=== PATIENT | female | born 1965 | race Two or more races ===

== ENCOUNTER 2017-09-17 10:34 | Observation (INO) | payer OTHER ==
--- NOTE | 2017-09-17 11:25 | PDOC ---
History of Present Illness - General History Source: Patient Exam Limitations: No Limitations - History of Present Illness Initial Comments: 09/17/17 15:57 The patient is a 52 year old female with past medical history of IDDM and HTN presents to the emergency department with abdominal pain, nausea and vomiting. The patient presents with a 1 week history of non bilious or non-bloody emesis for the past 1 week. The patient reports shes been unable to tolerate food for the past 3 days secondary to nausea and vomiting. The patient states an acute onset of constant abdominal pain localized to the flank region, with 10/10 in severity, that is aggravated by drinking or eating. The patient states she hasn t had a bowel movement in the past 2 days, but is able to move xena. Denies fever, chills, chest pain cough or a headache. Denies dysuria, hematuria , frequency or urgency to urinate. Denies diarrhea or constipation. Denies chest pain, shortness of breath or palpitations. Denies hematemesis or hemoptysis. Allergies: Iodinated Contrast Media - IV dye and aspirin Social history: None reported Surgical history: Gastric bypass/ Hernia repair (August 01, 2017 @ [place]), C- section and liposuction (August 2014), Post Op care: Dr. Natalia AWAN. Surgeon: Dr. Guillermo Newman PCP: Dr. Lily Henry <Anne Cook - Last Filed: 09/17/17 15:57> - General History Source: Patient Exam Limitations: No Limitations - History of Present Illness Travel History: No <Robby Gaines - Last Filed: 09/17/17 20:16> - General Chief Complaint: Pain, Acute Stated Complaint: PAIN Time Seen by Provider: 09/17/17 11:04 Past History <Anne Cook - Last Filed: 09/17/17 15:57> - Past Medical History Anemia: No Asthma: No Cancer: No CVA: No COPD: No Diabetes: Yes HTN: Yes - Surgical History Abdominal Surgery: Yes Appendectomy: No Cholecystectomy: No GI Surgery: Yes (sleeve) - Immunization History Td Vaccination: Yes Immunization Up to Date: Yes - Suicide/Smoking/Psychosocial Hx Smoking Status: No Smoking History: Never smoked Years of Tobacco Use: 0 Have you smoked in the past 12 months: No Number of Cigarettes Smoked Daily: 0 Cigars Per Day: 0 Information on smoking cessation initiated: No Hx Alcohol Use: No Drug/Substance Use Hx: No Substance Use Type: None Hx Substance Use Treatment: No <Robby Gaines - Last Filed: 09/17/17 20:16> - Past Medical History Allergies/Adverse Reactions: Allergies Allergy/AdvReac Type Severity Reaction Status Date / Time aspirin Allergy Intermediate Hives Verified 09/17/17 10:37 Iodinated Contrast- Oral and Allergy Mild Rash Verified 09/17/17 10:37 IV Dye Home Medications: Ambulatory Orders Pantoprazole Sodium [Protonix -] 20 mg PO BID 09/17/17 metFORMIN HCL [Metformin HCl] 500 mg PO DAILY 09/17/17 Review of Systems - Review of Systems Able to Perform ROS?: Yes Comments:: 09/17/17 15:58 CONSTITUTIONAL: No reported: Fever, Chills, Diaphoresis, Generalized Weakness, Malaise, Loss of Appetite HEENT: No reported: Rhinorrhea, Nasal Congestion, Throat Pain, Throat Swelling, Difficulty Swallowing, Mouth Swelling, Ear Pain, Eye Pain, Visual Changes CARDIOVASCULAR: No reported: Chest Pain, Syncope, Palpitations, Irregular Heart Rate, Lightheadedness, Peripheral Edema RESPIRATORY: No reported: Cough, Shortness of Breath, SOB with Exertion, Orthopnea, Wheezing , Stridor, Hemoptysis GASTROINTESTINAL: (+) Nausea, vomiting and abdominal pain. No reported: Abdominal Distension, Diarrhea, Constipation, Melena, Hematochezia GENITOURINARY: (+) Flank pain. No reported: Dysuria, Frequency, Urgency, Hesitancy, Flank Pain, Genital Pain MUSCULOSKELETAL: No reported: Myalgia, Arthralgia, Joint Swelling, Back pain, Neck Pain SKIN: No reported: Rash, Itching, Pallor HEMEATOLOGIC/IMMUNOLOGIC: No reported: Easy Bleeding, Easy Bruising, Lymphadenopathy, Frequent infections ENDOCRINE: No reported: Unexplained Weight Gain, Unexplained Weight Loss, Heat Intolerance , Cold Intolerance NEUROLOGIC: No reported: Headache, Focal Weakness, Paresthesias, Vertigo, Lightheadedness, Unsteady Gait, Seizure, Mental Status Changes, Incontinence PSYCHIATRIC: No reported: Anxiety, Depression <Anne Cook - Last Filed: 09/17/17 15:57> *Physical Exam - Vital Signs Last Vital Signs Temp Pulse Resp BP Pulse Ox 98.0 F 97 H 17 180/79 99 09/17/17 10:37 09/17/17 10:37 09/17/17 10:37 09/17/17 10:37 09/17/17 10:37 - Physical Exam Comments: 09/17/17 15:58 GENERAL: The patient is awake, alert, and fully oriented, Nontoxic - but apperas uncomfortable. HEAD: Normocephalic, atraumatic. EYES: extraocular movements intact, sclera anicteric, conjunctiva clear. ENT: Normal voice, Moist mucous membranes. NECK: Normal range of motion, supple LUNGS: Breath sounds equal, clear to auscultation bilaterally. No wheezes, no rhonchi, no rales. HEART: Regular rate and rhythm, normal S1 and S2 without murmur, rub or gallop. ABDOMEN: Soft, nontender, No guarding, no rebound. No CVA tenderness, several well healed wounds on abdomen EXTREMITIES: Normal range of motion, no edema. NEUROLOGICAL: No facial assymetry, Normal speech, moving all 4 extremities spontaneously and symmetrically PSYCH: Normal mood, normal affect. SKIN: Warm, Dry, normal turgor, <Anne Cook - Last Filed: 09/17/17 15:57> - Vital Signs Last Vital Signs Temp Pulse Resp BP Pulse Ox 98.0 F 97 H 17 180/79 99 09/17/17 10:37 09/17/17 10:37 09/17/17 10:37 09/17/17 10:37 09/17/17 10:37 <Robby Gaines - Last Filed: 09/17/17 20:16> ED Treatment Course - LABORATORY CBC & Chemistry Diagram: 09/17/17 11:53 09/17/17 11:53 - ADDITIONAL ORDERS Additional order review: Laboratory Results 09/17/17 09/17/17 09/17/17 13:14 12:38 11:53 PT with INR INR Sodium Potassium Chloride Carbon Dioxide Anion Gap BUN Creatinine Creat Clearance w eGFR Random Glucose Lactic Acid 1.4 Calcium Total Bilirubin AST ALT Alkaline Phosphatase Total Protein Albumin Lipase Serum , Qual Negative Urine Color Kimi Urine Appearance Cloudy Urine pH 5.0 Ur Specific [place] 1.029 Urine Protein 2+ H Urine Glucose (UA) Negative Urine Ketones 1+ H Urine Blood 1+ H Urine Nitrite Positive Urine Bilirubin 2.0 Urine Urobilinogen 4.0 e.u/dl H Ur Leukocyte Esterase Negative Urine WBC (Auto) 9 Urine RBC (Auto) 14 Ur Epithelial Cells Many Urine Bacteria Many Hyaline Casts 2 Urine Mucus Many Blood Type Antibody Screen 09/17/17 09/17/17 09/17/17 11:53 11:53 11:53 PT with INR 13.70 H INR 1.21 H Sodium 140 Potassium 4.5 Chloride 108 H Carbon Dioxide 24 Anion Gap 8 BUN 9 Creatinine 0.8 Creat Clearance w eGFR > 60 Random Glucose 173 H Lactic Acid Calcium 9.1 Total Bilirubin 0.9 AST 37 ALT 24 Alkaline Phosphatase 101 Total Protein 7.8 Albumin 4.0 Lipase 89 Serum , Qual Urine Color Urine Appearance Urine pH Ur Specific [place] Urine Protein Urine Glucose (UA) Urine Ketones Urine Blood Urine Nitrite Urine Bilirubin Urine Urobilinogen Ur Leukocyte Esterase Urine WBC (Auto) Urine RBC (Auto) Ur Epithelial Cells Urine Bacteria Hyaline Casts Urine Mucus Blood Type A POSITIVE Antibody Screen Negative 09/17/17 11:53 RBC 3.86 MCV 93.1 MCHC 34.8 RDW 13.0 MPV 7.2 L D Neutrophils % 61.8 D Lymphocytes % 31.5 D Monocytes % 4.7 Eosinophils % 1.3 Basophils % 0.7 - Medications Given in the ED: ED Medications Discontinued Medications Generic Name Dose Route Start Last Admin Trade Name Romieq PRN Reason Stop Dose Admin Sodium Chloride 1,000 mls @ 1,000 mls/hr 09/17/17 11:29 09/17/17 11:54 Normal Saline - IV 09/17/17 12:28 1,000 mls/hr .Q1H ONE Administration Morphine Sulfate 2 mg 09/17/17 11:29 09/17/17 11:55 Morphine Injection - IVPUSH 09/17/17 11:30 2 mg ONCE ONE Administration Morphine Sulfate 2 mg 09/17/17 14:14 09/17/17 14:24 Morphine Injection - IVPUSH 09/17/17 14:15 2 mg ONCE ONE Administration Ondansetron HCl 4 mg 09/17/17 11:29 09/17/17 11:54 Zofran Injection IVPB 09/17/17 11:30 4 mg ONCE ONE Administration <Anne Cook - Last Filed: 09/17/17 15:57> - LABORATORY CBC & Chemistry Diagram: 09/17/17 11:53 09/17/17 11:53 <Robby Gaines - Last Filed: 09/17/17 20:16> Medical Decision Making - Medical Decision Making 09/17/17 11:24 52y F presents with n/v x 1 week, associated with abdominal pain that worsens in the LUQ radiating to the epigastrium. Unable to tolerate food for 3 days and no bm for 2 days. no fever/chills, diarrhea, hematmeisis. +flatuence. on exam the pts abdomen is soft nontender, but she appears uncomfortable Gastric bypass/hernia repair on 08/01 at [place]. ddx includes obstruction, kidney stones, andriy ck cbc, cmp, lactic acid will obtain ekg to screen for acs will give zofran, fluids, morphine for symptomatic relief A portion of this note was documented by scribe services under my direction. I have reviewed the details of the note, within reason, and agree with the documentation with the following case summary and management plan written by me 09/17/17 15:33 pts labs reviewed - unremarkable pts UA cw UTI wlil treat with pyroidium and levaquin CT abd unremarkble for acute process, no signs of hydro on CT, or inflammatory changes such as pyelo no signs of hydro on bedside US +moderate stool retention will give stool softener 09/17/17 17:52 pt still in significant pain writhing around. notes her pain seems to be coming form her back and raditint o arm ?thoracic/cervical hernia - will obtain CT to further evuate her pain 09/17/17 19:06 will add on xray chest, if no cervical/trahocic cause, consider ?dissection?? although pt does not hve many risk factors and pain is fairly atypical will sign patient pt out to dr. hawkins to fu and reassess the patient * will admit to obsevation for now still awaiting trop from lab had followed up noted they will run it 09/17/17 19:51 cxr appears normal with signs of widened mediastinum or abnormal contours 09/17/17 20:14 The pts daugther arrived - states she chronically has abd/chest/back pain for many years, and was on percocet at home but wasnt really helping. Pt does have a visit from 5 years ago for similar complaint. Unclear about chronicity of her symptoms. but as pt is still in pain will admit for further management case dw dr. Kerr - agree with obsevation in med surg under dr. cruz service <Robby Gaines - Last Filed: 09/17/17 20:16> *DC/Admit/Observation/Transfer - Attestations Scribe Attestion: 09/17/17 15:58 Documentation prepared by Anne Cook, acting as medical nurse for Robby Gaines MD. <Anne Cook - Last Filed: 09/17/17 15:57> - Discharge Dispostion Decision to Admit order: Yes <Robby Gaines - Last Filed: 09/17/17 20:16> Diagnosis at time of Disposition: Intractable pain Urinary tract infection Qualifiers: Urinary tract infection type: acute cystitis Hematuria presence: with hematuria Qualified Code(s): N30.01 - Acute cystitis with hematuria - Discharge Dispostion Condition at time of disposition: Stable - Referrals Referrals: Lily Henry MD [Primary Care Provider] - - Patient Instructions
[2017-09-17] MEDS ORDERED: SODIUM CHLORIDE 1,000 ML IV ONE (11:29)
[2017-09-17] MEDS ORDERED: ONDANSETRON 4 MG/2 ML VIAL IVPB ONE (11:29)
[2017-09-17] MEDS ORDERED: morphine CARPU-JECT 2 MG/1 ML DISP.SYRIN IVPUSH ONE ×2 (11:29→14:14)
[2017-09-17] MEDS ORDERED: MORPHINE SULFATE 2 MG/ML VIAL ONE ×3 (11:32→23:55)
[2017-09-17] MEDS ORDERED: ONDANSETRON 4 MG/2 ML VIAL ONE (11:33)
[2017-09-17 11:57] LABS: BASO % 0.7 % (0-2.0); EOS % 1.3 % (0-4.5); HEMATOCRIT 35.9 % (32.4-45.2); HEMOGLOBIN 12.5 GM/dL (10.7-15.3); LYMPH % 31.5 % (8-40); MCH 32.4 pg (25.7-33.7); MCHC 34.8 g/dl (32.0-36.0); MEAN CELL VOLUME 93.1 fl (80-96); MEAN PLT VOLUME 7.2 fl (7.5-11.1); MONO % 4.7 % (3.8-10.2); NEUT % 61.8 % (42.8-82.8); PLATELET COUNT 339 K/MM3 (134-434); RBC 3.86 M/mm3 (3.60-5.2); WHITE BLOOD COUNT 5.5 K/mm3 (4.0-10.0)
[2017-09-17 12:15] LABS: INR 1.21 (0.82-1.09); PROTHROMBIN TIME (PATIENT) 13.7 SEC (9.7-13.0)
[2017-09-17 12:26] LABS: ANION GAP 8 (8-16); BILIRUBIN,TOTAL 0.9 mg/dL (0.2-1.0); BLOOD UREA NITROGEN 9 mg/dL (7-18); CALCIUM 9.1 mg/dL (8.5-10.1); CHLORIDE 108 mmol/L (98-107); CO2 24 mmol/L (21-32); CREATININE 0.8 mg/dL (0.55-1.02); GLUCOSE,RANDOM 173 mg/dL (74-106); LIPASE 89 U/L (73-393); SGPT/ALT 24 U/L (12-78); SODIUM 140 mmol/L (136-145); TOT PROT 7.8 g/dl (6.4-8.2)
[2017-09-17 12:27] LABS: ALK PHOS 101 U/L (45-117)
[2017-09-17 12:29] LABS: POTASSIUM 4.5 mmol/L (3.5-5.1); SGOT/AST 37 U/L (15-37)
[2017-09-17 12:54] LABS: URINE APPEARANCE CLOUDY; URINE COLOR AMBER; URINE GLUCOSE (UA) NEGATIVE (NEGATIVE); URINE KETONE 1+ (NEGATIVE); URINE LEUK ESTERASE NEGATIVE (NEGATIVE); URINE NITRITE POSITIVE (NEGATIVE); URINE UROBILINOGEN 4.0 E.U/dl mg/dL (0.2-1.0)
[2017-09-17 12:55] LABS: URINE PROTEIN 2+ (NEGATIVE)
[2017-09-17 13:03] LABS: EPI CELLS MANY /HPF (FEW); URINE BACTERIA MANY /hpf (NONE SEEN); URINE HYALINE CAST 2 /lpf; URINE MUCUS MANY
--- NOTE | 2017-09-17 14:33 | EKG ---
Test Reason : Blood Pressure : / mmHG Vent. Rate : 082 BPM Atrial Rate : 082 BPM P-R Int : 148 ms QRS Dur : 078 ms QT Int : 418 ms P-R-T Axes : 049 008 029 degrees QTc Int : 488 ms NORMAL SINUS RHYTHM CANNOT RULE OUT ANTERIOR INFARCT , AGE UNDETERMINED ABNORMAL ECG WHEN COMPARED WITH ECG OF 30-MAR-2013 08:51, NONSPECIFIC T WAVE ABNORMALITY NOW EVIDENT IN ANTERIOR LEADS NONSPECIFIC T WAVE ABNORMALITY NO LONGER EVIDENT IN LATERAL LEADS Confirmed by Rikki Jacome ([id number]) on 09/17/2017 2:33:02 PM Referred By: Confirmed By:Rikki Jacome
[2017-09-17] MEDS ORDERED: PHENAZOPYRIDINE HCL 100 MG TABLET (FP) PO ONE (15:34)
[2017-09-17] MEDS ORDERED: MAGNESIUM CITRATE 300 ML BOTTLE PO ONE (15:37)
[2017-09-17] MEDS ORDERED: KETOROLAC TROMETHAMINE 30 MG/1 ML VIAL IVPUSH ONE (16:16)
[2017-09-17] MEDS ORDERED: KETOROLAC TROMETHAMINE 30 MG/1 ML VIAL ONE (16:26)
[2017-09-17] MEDS ORDERED: MAGNESIUM CITRATE 300 ML BOTTLE ONE (16:26)
[2017-09-17] MEDS ORDERED: PHENAZOPYRIDINE HCL 100 MG TABLET (FP) ONE (16:26)
[2017-09-17] MEDS ORDERED: morphine CARPU-JECT 4 MG/1 ML DISP.SYRIN IVPUSH ONE ×2 (17:43→17:52)
[2017-09-17] MEDS ORDERED: morphine SULFATE 4 MG/ML VIAL ONE (17:52)
[2017-09-17] MEDS ORDERED: ACETAMINOPHEN 1000 MG/100 ML VIAL (NON FORMULARY) IVPB ONE (19:48)
[2017-09-17] MEDS ORDERED: ACETAMINOPHEN INJECTION 100 ML IVPB ONE (20:08)
--- NOTE | 2017-09-17 21:01 | PN ---
Teaching Attending Note Name of Resident: Florentino Ryan ATTENDING PHYSICIAN STATEMENT I saw and evaluated the patient. I reviewed the resident's note and discussed the case with the resident. I agree with the resident's findings and plan as documented. SUBJECTIVE: Patient is a 52 year old woman with past medical history of insulin-treated DM and HTN presents to the ER with abdominal pain, nausea and vomiting. The patient presents with a 1 week history of non bilious or non-bloody emesis. She s been unable to tolerate food for the past 3 days due to nausea and vomiting. She had an acute onset of constant abdominal pain localized to the flank region , with 10/10 in severity, that is aggravated by drinking or eating. The patient states she hasnt had a bowel movement in the past 2 days, but is able to pass gas. She denies fever, chills, chest pain, dysuria, hematuria, frequency or urgency. OBJECTIVE: Vital Signs Period Temp Pulse Resp BP Sys/Sierra Pulse Ox Last 24 Hr 97.7 F-98.0 F 91-97 16-17 142-180/79-85 97-99 HEENT: No Jaundice, eye redness or discharge, PERRLA, EOMI. Normocephalic, atraumatic. External ears are normal and hearing is grossly intact. No nasal discharge. Neck: Supple, nontender. No palpable adenopathy or thyromegaly. No JVD Chest: Good effort. Clear to auscultation and percussion. Heart: Regular. No S3, rub or murmur Abdomen: Not distended, soft, nontender and no HSM. No rebound or guarding. Normoactive bowel sounds. Ext: Peripheral pulses intact. No leg edema. Skin: Warm and dry. No petechiae, rash or ecchymosis. Neuro: Alert. Oriented x3. CN 2-12 grossly intact. Sensation grossly intact in all four extremities and DTR are symmetric. Home Medications Medication Instructions Recorded Pantoprazole Sodium [Protonix -] 20 mg PO BID 09/17/17 metFORMIN HCL [Metformin HCl] 500 mg PO DAILY 09/17/17 Abnormal Lab Results 09/17/17 09/17/17 09/17/17 11:53 11:53 11:53 MPV 7.2 L D PT with INR 13.70 H INR 1.21 H Chloride 108 H Random Glucose 173 H Urine Protein Urine Ketones Urine Blood Urine Urobilinogen 09/17/17 12:38 MPV PT with INR INR Chloride Random Glucose Urine Protein 2+ H Urine Ketones 1+ H Urine Blood 1+ H Urine Urobilinogen 4.0 e.u/dl H Current Medications Generic Name Dose Route Start Last Admin Trade Name Freq PRN Reason Stop Dose Admin Heparin Sodium (Porcine) 5,000 unit 09/18/17 06:00 Heparin - SQ TID BAUDILIO Sodium Chloride 1,000 mls @ 100 mls/hr 09/17/17 23:15 09/17/17 23:39 Normal Saline - IV 100 mls/hr ASDIR BAUDILIO Administration Insulin Aspart 1 vial 09/18/17 07:00 Novolog Vial Sliding Scale - SQ ACHS [facility] Protocol Metoclopramide HCl 10 mg 09/17/17 23:12 09/18/17 00:01 Reglan Injection - IVPUSH 10 mg Q6H PRN Administration NAUSEA AND/OR VOMITING Morphine Sulfate 2 mg 09/17/17 23:16 09/18/17 00:01 Morphine Sulfate IVPUSH 2 mg Q4H PRN Administration PAIN LEVEL 6-10 Pantoprazole Sodium 40 mg 09/17/17 23:13 09/17/17 23:30 Protonix Iv IVPUSH 40 mg DAILY BAUDILIO Administration Polyethylene Glycol 17 gm 09/18/17 10:00 Miralax (For Daily Use) - PO DAILY [facility] ASSESSMENT AND PLAN: 1. Diabetic gastropathy - Will treat with Reglan, zofran, IV fluid NS at 100 ml/ hour and IV protonix 40 mg daily. Patient also has constipation which will be treated with Miralax. Will consult GI. 2. Renal colic -Though the stones seen on CT were nonobstructing, she may still have renal colic. Will continue IV fluids and morphine 2 mg IV q 4 hours. 3. Uncontrolled Hypertension - Improve in the ER without treatment. Will give Lisinopril 10 mg po BID and stress low salt diet. 4. Uncontrolled DM - Will hold Metformin, check HbA1c and place on insulin sliding scale. 5. DVT prophylaxis - Heparin 5000u sq tid. 6. Advance directives - Full code
[2017-09-17] MEDS ORDERED: morphine CARPU-JECT 2 MG/1 ML DISP.SYRIN IVPUSH PRN (23:08)
[2017-09-17] MEDS ORDERED: METOCLOPRAMIDE HCL INJECTION 10 MG/2 ML VIAL IVPUSH PRN (23:12)
[2017-09-17] MEDS ORDERED: PANTOPRAZOLE SODIUM 40 MG VIAL ONE (23:20)
[2017-09-17] MEDS: PANTOPRAZOLE SODIUM 40 MG VIAL IVPUSH SCH (23:30)
[2017-09-17] MEDS: SODIUM CHLORIDE 1,000 ML IV SCH (23:39)
[2017-09-17] MEDS ORDERED: METOCLOPRAMIDE HCL INJECTION 10 MG/2 ML VIAL ONE (23:55)
[2017-09-18] MEDS: morphine SULFATE 4 MG/ML VIAL IVPUSH PRN ×3 (00:01→11:20)
[2017-09-18] MEDS ORDERED: ONDANSETRON 4 MG/2 ML VIAL IVPB PRN (01:45)
--- NOTE | 2017-09-18 01:57 | HP ---
CHIEF COMPLAINT: Flank pain PCP: Dr. Chambers HISTORY OF PRESENT ILLNESS: The patient is a 52 yo f w/ PMH DM who comes into the ED c/o a 1 week history of left sided flank pain as well as nausea and vomiting. The patient describes a dull pain centered along her left flank which radiates to her back, chest and abdomen. The pain is 10/10 in intensity and has no exacerbating or alleviating factors. The patient associates this pain with several episodes of NBNB vomiting which was white in color. The patient states that she has been unable to tolerate PO for the last 3 days due to pain and has not had a BM for the past two days. Patient endorses passing gas. Patient denies fever, sweats, headache, diarrhea. ER course was notable for: (1) Zofran, Toradol, Morphine, 1L NS (2) CT AP showing possible renal stones and moderate fecal retention PAST MEDICAL HISTORY: DM diagnosed 14 years ago, not on insulin PAST SURGICAL HISTORY: Gastric bypass surgery in july of 2017 Liposuction 2014 csection 1990 Social History: Smoking: denies Alcohol: denies Drugs: denies Lives at home with , has 2 adult daughters Family History: Mother with DM Allergies aspirin Allergy (Intermediate, Verified 09/17/17 10:37) Hives Iodinated Contrast- Oral and IV Dye Allergy (Mild, Verified 09/17/17 10:37) Rash HOME MEDICATIONS: Home Medications Medication Instructions Recorded Pantoprazole Sodium [Protonix -] 20 mg PO BID 09/17/17 metFORMIN HCL [Metformin HCl] 500 mg PO DAILY 09/17/17 REVIEW OF SYSTEMS CONSTITUTIONAL: Absent: fever, diaphoresis, weight change HEENT: Absent: rhinorrhea, nasal congestion, throat pain, throat swelling, difficulty swallowing, mouth swelling, ear pain, eye pain, visual changes CARDIOVASCULAR: Absent: Syncope, palpitations, irregular heart rate, lightheadedness, peripheral edema RESPIRATORY: Absent: cough, shortness of breath, dyspnea with exertion, orthopnea, wheezing, stridor, hemoptysis GASTROINTESTINAL: Absent: abdominal distension, diarrhea, melena, hematochezia GENITOURINARY: Absent: dysuria, frequency, urgency, hesitancy, hematuria, flank pain, genital pain MUSCULOSKELETAL: Absent: myalgia, arthralgia, joint swelling, back pain, neck pain SKIN: Absent: rash, itching, pallor HEMATOLOGIC/IMMUNOLOGIC: Absent: easy bleeding, easy bruising, lymphadenopathy, frequent infections ENDOCRINE: Absent: unexplained weight gain, unexplained weight loss, heat intolerance, cold intolerance NEUROLOGIC: Absent: headache, focal weakness or paresthesias, dizziness, unsteady gait, seizure, mental status changes, bladder or bowel incontinence PSYCHIATRIC: Absent: anxiety, depression, suicidal or homicidal ideation, hallucinations. PHYSICAL EXAMINATION Vital Signs - 24 hr 09/17/17 09/17/17 09/18/17 10:37 20:54 00:46 Temperature 98.0 F 97.7 F 98.3 F Pulse Rate 97 H Pulse Rate [ 91 H 93 H Left Radial] Respiratory 17 16 14 Rate Blood Pressure 180/79 Blood Pressure 142/85 146/83 [Left Arm] O2 Sat by Pulse 99 97 94 L Oximetry (%) 09/18/17 00:58 Temperature 98.3 F Pulse Rate Pulse Rate [ 93 H Left Radial] Respiratory 14 Rate Blood Pressure Blood Pressure 146/83 [Left Arm] O2 Sat by Pulse Oximetry (%) GENERAL: Awake, alert, and fully oriented, in no acute distress. HEAD: Normal with no signs of trauma. EYES: Pupils equal, round and reactive to light, extraocular movements intact, sclera anicteric, conjunctiva clear. No lid lag. EARS, NOSE, THROAT: oropharynx clear without exudates. Moist mucous membranes. NECK: Normal range of motion, supple without lymphadenopathy, JVD, or masses. LUNGS: Breath sounds equal, clear to auscultation bilaterally. No wheezes, and no crackles. No accessory muscle use. HEART: Regular rate and rhythm, normal S1 and S2 without murmur, rub or gallop. ABDOMEN: Soft, not distended, normoactive bowel sounds, Tenderness to palpation in the epigastrium. Left flank pain and left chest pain not reproducible on palpation. No CVA tenderness. Lay sign negative. No hepatomegaly or splenomegaly. LOWER EXTREMITIES: 2+ pulses, warm, well-perfused. No calf tenderness. No peripheral edema. NEUROLOGICAL: Cranial nerves II-X intact. Normal speech. Normal gait. strength 5/5 in all 4 extremities PSYCHIATRIC: Cooperative. Good eye contact. Appropriate mood and affect. SKIN: Warm, dry, normal turgor, no rashes or lesions noted, normal capillary refill. Laboratory Results - last 24 hr 09/17/17 09/17/17 09/17/17 11:53 11:53 11:53 WBC 5.5 RBC 3.86 Hgb 12.5 Hct 35.9 MCV 93.1 MCH 32.4 MCHC 34.8 RDW 13.0 Plt Count 339 D MPV 7.2 L D Absolute Neuts (auto) 3.4 Neutrophils % 61.8 D Lymphocytes % 31.5 D Monocytes % 4.7 Eosinophils % 1.3 Basophils % 0.7 Nucleated RBC % 0 PT with INR 13.70 H INR 1.21 H Sodium 140 Potassium 4.5 Chloride 108 H Carbon Dioxide 24 Anion Gap 8 BUN 9 Creatinine 0.8 Creat Clearance w eGFR > 60 Random Glucose 173 H Lactic Acid Calcium 9.1 Total Bilirubin 0.9 AST 37 ALT 24 Alkaline Phosphatase 101 Creatine Kinase 166 Creatine Kinase Index 0.6 CK-MB (CK-2) 1.12 Troponin I < 0.02 Total Protein 7.8 Albumin 4.0 Lipase 89 Serum , Qual Urine Color Urine Appearance Urine pH Ur Specific [place] Urine Protein Urine Glucose (UA) Urine Ketones Urine Blood Urine Nitrite Urine Bilirubin Urine Urobilinogen Ur Leukocyte Esterase Urine WBC (Auto) Urine RBC (Auto) Ur Epithelial Cells Urine Bacteria Hyaline Casts Urine Mucus Blood Type Antibody Screen 09/17/17 09/17/17 09/17/17 11:53 11:53 12:38 WBC RBC Hgb Hct MCV MCH MCHC RDW Plt Count MPV Absolute Neuts (auto) Neutrophils % Lymphocytes % Monocytes % Eosinophils % Basophils % Nucleated RBC % PT with INR INR Sodium Potassium Chloride Carbon Dioxide Anion Gap BUN Creatinine Creat Clearance w eGFR Random Glucose Lactic Acid 1.4 Calcium Total Bilirubin AST ALT Alkaline Phosphatase Creatine Kinase Creatine Kinase Index CK-MB (CK-2) Troponin I Total Protein Albumin Lipase Serum , Qual Urine Color Kimi Urine Appearance Cloudy Urine pH 5.0 Ur Specific [place] 1.029 Urine Protein 2+ H Urine Glucose (UA) Negative Urine Ketones 1+ H Urine Blood 1+ H Urine Nitrite Positive Urine Bilirubin 2.0 Urine Urobilinogen 4.0 e.u/dl H Ur Leukocyte Esterase Negative Urine WBC (Auto) 9 Urine RBC (Auto) 14 Ur Epithelial Cells Many Urine Bacteria Many Hyaline Casts 2 Urine Mucus Many Blood Type A POSITIVE Antibody Screen Negative 09/17/17 13:14 WBC RBC Hgb Hct MCV MCH MCHC RDW Plt Count MPV Absolute Neuts (auto) Neutrophils % Lymphocytes % Monocytes % Eosinophils % Basophils % Nucleated RBC % PT with INR INR Sodium Potassium Chloride Carbon Dioxide Anion Gap BUN Creatinine Creat Clearance w eGFR Random Glucose Lactic Acid Calcium Total Bilirubin AST ALT Alkaline Phosphatase Creatine Kinase Creatine Kinase Index CK-MB (CK-2) Troponin I Total Protein Albumin Lipase Serum , Qual Negative Urine Color Urine Appearance Urine pH Ur Specific [place] Urine Protein Urine Glucose (UA) Urine Ketones Urine Blood Urine Nitrite Urine Bilirubin Urine Urobilinogen Ur Leukocyte Esterase Urine WBC (Auto) Urine RBC (Auto) Ur Epithelial Cells Urine Bacteria Hyaline Casts Urine Mucus Blood Type Antibody Screen ASSESSMENT/PLAN: The patient is a 52 yo f w/ PMH DM who comes in complaining of flank, abdominal pain associated with nausea and vomiting. #Left sided flank pain, nausea and vomiting possibly 2/2 nephrolithiasis -CT AP with possible renal stones b/l -1+ blood in UA -elevated calcium -pain control w/ Morphine 2mg q4h -NPO -Zofran 4mg Q6H PRN nausea -NS @ 100 #Epigastric pain 2/2 gastritis vs diabetic gastroparesis -Reglan 10mg q6H -GI consult -gastric emptying study in AM -Protonix 40mg PO #constipation likely 2/2 decreased PO intake and dehydration -IVF as above -miralax 17g daily #DM -BGM ACHS -ISS ACHS -A1c in AM #FEN -NS@ 100 -lytes WNL, replete PRN -NPO #Prophy -Heparin SQ 5k units TID #Dispo -admit med surg -home medications must be verified with the patient's pharmacy Visit type - Emergency Visit Emergency Visit: Yes ED Registration Date: 09/17/17 Care time: The patient presented to the Emergency Department on the above date and was hospitalized for further evaluation of their emergent condition. - New Patient This patient is new to me today: Yes Date on this admission: 09/18/17 - Critical Care Critical Care patient: No Hospitalist Screening - Colonoscopy Questionnaire Colonoscopy Questionnaire: Colonoscopy Questionnaire - Patient: 50 - 75 years old and never had a screening colonoscopy: Unknown History of colon or rectal polyps, or CA: Unknown History of IBD, Crohn's disease or UC: Unknown History of abdominal radiation therapy as a child: Unknown - Relative: 1 with colon or rectal CA, or polyps at age 60 or younger: Unknown Colon or rectal CA diagnosed at age 45 or younger: Unknown Multiple relatives with colon or rectal CA: Unknown - Outcome: Screening Result: Negative Screen
[2017-09-18 03:20] VITALS: BMI 30.4
[2017-09-18] MEDS: INSULIN SLIDING SCALE (NOVOLOG) 1 VIAL SQ SCH ×4 (06:36→22:09)
[2017-09-18] MEDS: HEPARIN NA (PORCINE) 5,000 UNITS/ML 1ML VIAL SQ SCH ×3 (06:36→22:09)
[2017-09-18 07:04] LABS: HEMATOCRIT 35.1 % (32.4-45.2); HEMOGLOBIN 12.2 GM/dL (10.7-15.3); MCH 32.7 pg (25.7-33.7); MCHC 34.8 g/dl (32.0-36.0); PLATELET COUNT 299 K/MM3 (134-434); RBC 3.74 M/mm3 (3.60-5.2); RDW 13.1 % (11.6-15.6); WHITE BLOOD COUNT 5.8 K/mm3 (4.0-10.0)
[2017-09-18 07:25] LABS: INR 1.29 (0.82-1.09); PROTHROMBIN TIME (PATIENT) 14.6 SEC (9.7-13.0)
[2017-09-18 07:28] LABS: ACTIVATED PTT 27.3 SECONDS (25.2-36.5)
[2017-09-18 07:29] LABS: CHLORIDE 104 mmol/L (98-107); POTASSIUM 3.8 mmol/L (3.5-5.1); SODIUM 140 mmol/L (136-145)
[2017-09-18 07:36] LABS: ALBUMIN 3.9 g/dl (3.4-5.0); ALK PHOS 103 U/L (45-117); ANION GAP 11 (8-16); BILIRUBIN,TOTAL 0.8 mg/dL (0.2-1.0); BLOOD UREA NITROGEN 8 mg/dL (7-18); CO2 25 mmol/L (21-32); CREATININE 0.8 mg/dL (0.55-1.02); GLUCOSE,RANDOM 199 mg/dL (74-106); MAGNESIUM 2.3 mg/dL (1.8-2.4); PHOSPHOROUS 3.5 mg/dL (2.5-4.9); SGOT/AST 21 U/L (15-37); SGPT/ALT 22 U/L (12-78); TOT PROT 7.9 g/dl (6.4-8.2)
[2017-09-18] MEDS: PANTOPRAZOLE SODIUM 40 MG VIAL IVPUSH SCH ×2 (11:26→22:09)
[2017-09-18] MEDS: POLYETHYLENE GLYCOL 3350 119 GM BTL PO SCH (11:28)
[2017-09-18] MEDS ORDERED: PROMETHAZINE HCL 25 MG TABLET PO PRN (11:35)
[2017-09-18] MEDS ORDERED: LACTULOSE 20 GM/30 ML UDC (FOR ORAL USE ONLY) PO ONE (11:46)
--- NOTE | 2017-09-18 12:34 | PROC ---
Endoscopy Procedure Endoscopy procedure completed. Please see scanned procedure report. Normal-appearing anastomosis, blind and efferent limbs. Normal-appearing, 4 cm gastric pouch, GEJ and the esophagus. Random, cold forceps biopsies were taken from the proximal jejunum and sent to pathology. Resume previous diet. Sx follow up re cholelithiasis.
[2017-09-18] MEDS ORDERED: DICYCLOMINE HCL 20 MG TABLET PO PRN (12:44)
--- NOTE | 2017-09-18 13:20 | CON.GI ---
Addendum entered and electronically signed by Teresa Jeronimo, RESIDENT 09/18/17 13:58: Would recommend orders for Hepatitis A IgG, Hepatitis B surface antibody, hepatitis b surface antigen, Hepatitis B core IgG antibody, Hepatitis C antibody for screening purposes. Patient does report history of hepatitis but unsure which type Original Note: Consult Consult Specialty:: Gastroenterology Referred by:: Dr. Lazcano Reason for Consultation:: Abdominal pain and vomiting - History of Present Illness Chief Complaint: Left flank pain History of Present Illness: Patient is a 52 year old female with a PMHx of NIDDMII and recent gastric bypass surgery who complains of severe left flank pain and epigastric abdominal pain for the past week that worsened in the last three days. Patient reports the pain is dull , constant, radiating from the left side of her abdomen to the back associated with nausea and vomiting for the last three days with numerous nonbilious nonbloody vomiting. There are no alleviating or exacerbating factors. Patient states she is unable to tolerate food or water. She has had no bowel movements in three days and states having constipation after her surgery. In the ED patient had CT abdomen that showed possible bilateral nonobstructing nephrolithiasis and moderate fecal retention and admitted for intractable abdominal pain. Patient currently complains of severe left flank and epigastric pain rated as a 10/10 and currently vomiting at bedside. Patient does report having early satiety and postprandial vomiting 20 minutes after eating all of last week associated with palpitations and abdominal cramping. Patient does admit to having hepatitis in the past Patient otherwise denies diarrhea, flushing after meals, diaphoresis, jaundice, hematochezia, hematemesis, hemoptysis, melena, hematuria, dysuria, frequency, dysphagia, recent travel, blood transfusions, or any recent antibiotic use. Last colonoscopy done 8-9 months ago and patient reports she was told it was normal. - History Source History Provided By: Patient Limitations to Obtaining History: No Limitations - Past Medical History ...LMP: 05/04/12 Endocrine: Yes: Diabetes Mellitus - Past Surgical History Past Surgical History: Yes: Bariatric Surgery (08/01/17), (1990), Hernia Repair (2017) - Alcohol/Substance Use Hx Alcohol Use: No History of Substance Use: reports: None - Smoking History Smoking history: Never smoked Have you smoked in the past 12 months: No Aproximately how many cigarettes per day: 0 - Social History Usual Living Arrangement: With Spouse ADL: Independent History of Recent Travel: No <Teresa Jeronimo - Last Filed: 09/18/17 13:57> Home Medications <Teresa Jeronimo - Last Filed: 09/18/17 13:57> <Kodak Carrizales - Last Filed: 09/18/17 15:09> - Allergies Allergies/Adverse Reactions: Allergies Allergy/AdvReac Type Severity Reaction Status Date / Time aspirin Allergy Intermediate Hives Verified 09/17/17 10:37 Iodinated Contrast- Oral and Allergy Mild Rash Verified 09/17/17 10:37 IV Dye - Home Medications Home Medications: Ambulatory Orders Pantoprazole Sodium [Protonix -] 20 mg PO BID 09/17/17 metFORMIN HCL [Metformin HCl] 500 mg PO DAILY 09/17/17 Family Disease History - Family Disease History Family Disease History: Diabetes: Mother <Teresa Jeronimo - Last Filed: 09/18/17 13:57> Review of Systems - Review of Systems Constitutional: reports: Loss of Appetite. denies: Chills, Diaphoresis, Fever, Night Sweats HENT: reports: No Symptoms. denies: Difficult Swallowing, Epistaxis Neck: reports: No Symptoms. denies: Tenderness Cardiovascular: reports: Palpitations. denies: Chest Pain, Edema, Shortness of Breath Respiratory: reports: No Symptoms. denies: Cough, Hemoptysis, SOB Gastrointestinal: reports: Abdominal Pain, Constipation, Nausea, Vomiting. denies: Dysphagia, Melena, Rectal Bleeding, Vomiting Blood Genitourinary: reports: Flank Pain. denies: Burning, Discharge, Dysuria, Hematuria Musculoskeletal: reports: Back Pain. denies: Extremity Pain, Muscle Weakness Neurological: denies: Confusion, Dizziness, Numbness, Parasthesia Endocrine: denies: Excessive Sweating, Flushing <Teresa Jeronimo - Last Filed: 09/18/17 13:57> Physical Exam-GI Vital Signs: Vital Signs Temperature 98.4 F 09/18/17 06:01 Pulse Rate 101 H 09/18/17 06:01 Respiratory Rate 20 09/18/17 06:01 Blood Pressure 145/90 09/18/17 06:01 O2 Sat by Pulse Oximetry (%) 94 L 09/18/17 00:46 Constitutional: Yes: Calm, Mild Distress. No: Diaphoresis Eyes: Yes: Conjunctiva Clear, PERRL. No: Sclera Icterus HENT: Yes: WNL, Atraumatic, Normocephalic. No: Hoarseness, Thrush Neck: Yes: WNL, Supple, Trachea Midline. No: Lymphadenopathy Cardiovascular: Yes: WNL, Regular Rate and Rhythm, S1, S2. No: Bruit, JVD Respiratory: Yes: WNL, Regular, CTA Bilaterally. No: Accessory Muscle Use, Rales, Rhonchi, Wheezes Gastrointestinal Inspection: Yes: Scars (multiple small incisional scars throughout abdomen). No: Ascites, Distention ...Auscultate: Yes: Normoactive Bowel Sounds ...Palpate: Yes: Tenderness (upon palpation of LLQ), Tenderness, Epigastium. No : Firm/Rigid, Guarding, Hepatomegaly, Splenomegaly ...Percussion: No: Fluid Wave, Tympanitic ...Rectal Exam: Yes: Guaiac Negative, Sphincter Tone Normal. No: Hemorrhoids/ External, Induration, Mass Genitourinary: No: Bladder Distention, CVA Tenderness - Left, CVA Tenderness - Right Extremities: No: Calf Tenderness, Cold, Cool Edema: No Integumentary: No: Erythema, Jaundice, Rash Neurological: Yes: WNL, Alert, Oriented. No: Aphasia, Confusion, Facial Droop, Lethargy Psychiatric: Yes: WNL, Alert, Oriented Labs: CBC, [facility] 09/18/17 06:30 09/18/17 06:30 INR 1.29 (0.82-1.09) H 09/18/17 06:30 09/18/17 06:30 Total Bilirubin 0.8 AST 21 ALT 22 Alkaline Phosphatase 103 Albumin 3.9 <Teresa Jeronimo - Last Filed: 09/18/17 13:57> Vital Signs: Vital Signs Temperature 97.7 F 09/18/17 14:34 Pulse Rate 62 09/18/17 14:34 Respiratory Rate 20 09/18/17 14:34 Blood Pressure 155/78 09/18/17 14:34 O2 Sat by Pulse Oximetry (%) 94 L 09/18/17 00:46 Labs: CBC, [facility] 09/18/17 06:30 09/18/17 06:30 INR, PTT INR 1.29 (0.82-1.09) H 09/18/17 06:30 <Kodak Carrizales - Last Filed: 09/18/17 15:09> Imaging - Results Cat Scan: Report Reviewed, Image Reviewed <Teresa Jeronimo - Last Filed: 09/18/17 13:57> Problem List - Problems (1) S/P gastric surgery Code(s): Z98.890 - OTHER SPECIFIED POSTPROCEDURAL STATES (2) Epigastric abdominal pain Code(s): R10.13 - EPIGASTRIC PAIN (3) LLQ abdominal pain Code(s): R10.32 - LEFT LOWER QUADRANT PAIN (4) Vomiting Code(s): R11.10 - VOMITING, UNSPECIFIED Qualifiers: Vomiting type: unspecified Vomiting Intractability: intractable Nausea presence: with nausea Qualified Code(s): R11.2 - Nausea with vomiting, unspecified (5) Urinary tract infection Code(s): N39.0 - URINARY TRACT INFECTION, SITE NOT SPECIFIED Qualifiers: Urinary tract infection type: acute cystitis Hematuria presence: with hematuria Qualified Code(s): N30.01 - Acute cystitis with hematuria <PhaniTeresa - Last Filed: 09/18/17 13:57> Assessment/Plan ASSESSMENT: Patient is a 52 year old female with a history of recent gastric bypass surgery (08/01/17) who presented for epigastric, LLQ abdominal pain and left flank pain associated with intractable vomiting and constipation. CT abdomen revealed possible bilateral nephrolithiasis with moderate fecal retention. Differential diagnosis includes but not limited to Gastric bypass complications that include marginal ulcerations,acute abdomen, anastomatic or duodenal stump leaks, obstruction, strictures, gastritis, chronic dismotility, diabetic gastroparesis (highly unlikely due to recent gastrectomy). PLAN: -Awaiting gastric emptying study to rule out any obstruction, strictures, dismotility, etc -Will perform endoscopy to rule out marginal ulcerations -Need to order RUQ abdominal U/S to rule out any gallstones due to gastric bypass complications causing increased risk of gallstones. CT scan has about a 30% sensitivity to detect gallstones -PPI 40mg BID, unless no ulceration -Miralax for constipation. Patient has been on percocet which is likely contributing to the constipation. Would not recommend Morphine for pain control. -Does not need erythromycin due to history of gastric bypass. -Bowel rest and NPO for endoscopy tomorrow <Teresa Jeronimo - Last Filed: 09/18/17 13:57> Attending Attestation - Resident Resident Name: EberTeresa caldera - HPI HPI: 09/18/17 14:59 The pt was interviewed and examined. The case was discussed with the resident. The pt has hx of weight loss surgery and likely has a 4-5 cm long gastric pouch. It is very unlikely that the symptoms are due to gastroparesis, otherwise the A/P as above. 09/18/17 15:01 - Physicial Exam PE: 09/18/17 15:07 Soft, non-surgical abdomen with normal BS - Medical Decision Making 09/18/17 15:09 as above <Kodak Carrizales - Last Filed: 09/18/17 15:09>
[2017-09-18] MEDS ORDERED: SODIUM PHOSPHATE/NA BIPHOS 133 ML ENEMA PR ONE (15:00)
--- NOTE | 2017-09-18 18:43 | PN ---
Teaching Attending Note Name of Resident: Hillary Jefferson ATTENDING PHYSICIAN STATEMENT I saw and evaluated the patient. I reviewed the resident's note and discussed the case with the resident. I agree with the resident's findings and plan as documented. SUBJECTIVE: No fever or chills . L sided pain under her left breast and arount to the flank . no Nausea. constipation OBJECTIVE: NAD CV: RRR lUngs: CTAB ext : no edema Abd: soft, ND , obese, NT. no tenderness over L lower ribs or back or spine No TTP in RUQ or spigastric area no rash on skin in L sided chest . Rectal exam by resident ,with no stool in rectal vault ASSESSMENT AND PLAN: 52 y/o lady with h/o Dm and HTN who presented with L sided flank pain and N/V 1- L sided flank pain /N/V : unclear etiology. no rash to suggest shingles. EKG with no acute ischemci changes. trop Nl x 1. No abd tenderness but with N/V can't r/o intra-abdominal process. ? gastroparesis / pU. No gastric outlet obstruction on CT scan . no free air in abd . ? nerve root impingement form disk bulge or possibly due to constipation - pain control - EGD tomorrow - monitor Abd exam - aggressive bowel regimen. - dx zofran and reglan and give compazine due to QTC of 488 2- HTN: probably due to pain on admission . not o any meds at [facility] e. monitor 3- DM : hold metformin cont SSI dispo ; pending her sx control . EGD. NPO after mid night
[2017-09-18] MEDS ORDERED: traMADol HCL 50 MG TABLET PO ONE (18:48)
--- NOTE | 2017-09-18 19:09 | PN ---
Physical Exam: SUBJECTIVE: Patient seen and examined at bedside. Today, pt c/o diffuse abdominal pain, rolling in bed with pain. With continued nausea and epigastric discomfort. With +BM this afternoon. Denies , fever, chills. OBJECTIVE: Vital Signs Period Temp Pulse Resp BP Sys/Sierra Pulse Ox Last 24 Hr 97.7 F-98.6 F 62-107 14-20 138-155/78-90 94-97 GENERAL: The patient appears uncomfortable. rolling in bed, in pain. awake, alert, and fully oriented, in moderate distress HEAD: Normal with no signs of trauma. EYES: PERRL, extraocular movements intact, sclera anicteric, conjunctiva clear. ENT: Ears normal, nares patent NECK: Trachea midline, full range of motion, supple. LUNGS: Breath sounds equal, shallow breaths - posteriorly HEART: +tachycardic rate and rhythm, S1, S2 without murmur, rub or gallop. ABDOMEN: +L flank pain- diffusely TTP. (-) CVA tenderness. EXTREMITIES: 2+ pt pulses, warm, well-perfused, no edema. NEUROLOGICAL: pt would not comply with exam d/t pain PSYCH: Normal mood, normal affect. SKIN: Warm, dry, normal turgor RECTAL: +no stool noted in vault, no blood Laboratory Results - last 24 hr 09/17/17 09/18/17 09/18/17 11:53 06:00 06:30 WBC 5.8 RBC 3.74 Hgb 12.2 Hct 35.1 MCV 94.0 MCH 32.7 MCHC 34.8 RDW 13.1 Plt Count 299 MPV 7.0 L Sodium 140 Potassium 4.5 Chloride 108 H Carbon Dioxide 24 Anion Gap 8 BUN 9 Creatinine 0.8 Creat Clearance w eGFR > 60 POC Glucometer Random Glucose 173 H Hemoglobin A1c % 7.2 H Calcium 9.1 Phosphorus Magnesium Total Bilirubin 0.9 AST 37 ALT 24 Alkaline Phosphatase 101 Creatine Kinase 166 Creatine Kinase Index 0.6 CK-MB (CK-2) 1.12 Troponin I < 0.02 Total Protein 7.8 Albumin 4.0 Lipase 89 09/18/17 09/18/17 09/18/17 06:30 06:30 06:34 MPV PT with INR 14.60 H INR 1.29 H PTT (Actin FS) 27.3 Sodium 140 Potassium 3.8 Chloride 104 Carbon Dioxide 25 Anion Gap 11 BUN 8 Creatinine 0.8 Creat Clearance w eGFR > 60 POC Glucometer 197 Random Glucose 199 H Hemoglobin A1c % Calcium 9.0 Phosphorus 3.5 Magnesium 2.3 Total Bilirubin 0.8 AST 21 ALT 22 Alkaline Phosphatase 103 Creatine Kinase Index Troponin I Total Protein 7.9 Albumin 3.9 Lipase Active Medications Generic Name Dose Route Start Last Admin Trade Name Freq PRN Reason Stop Dose Admin Heparin Sodium (Porcine) 5,000 unit 09/18/17 06:00 09/18/17 06:36 Heparin - SQ 5,000 unit TID BAUDILIO Administration Sodium Chloride 1,000 mls @ 100 mls/hr 09/17/17 23:15 09/17/17 23:39 Normal Saline - IV 100 mls/hr ASDIR BAUDILIO Administration Insulin Aspart 1 vial 09/18/17 07:00 09/18/17 17:00 Novolog Vial Sliding Scale - SQ Not Given ACHS [facility] Protocol Pantoprazole Sodium 40 mg 09/18/17 22:00 Protonix Iv IVPUSH BID BAUDILIO Polyethylene Glycol 17 gm 09/18/17 10:00 09/18/17 11:28 Miralax (For Daily Use) - PO Not Given DAILY BAUDILIO Promethazine HCl 12.5 mg 09/18/17 11:35 Phenergan - PO Q6H PRN NAUSEA AND/OR VOMITING IMAGING 09/17/17: CTAP w/contrast: no definite CT findings of acute pathology. s/p bariatric gastric surgery. diffuse hepatic steatosis. mild R renal upper pole cortical scarring. possible punctate bilateral nonobstructing renal calculi ( vs. representing excreted contrast). colonic fecal retention which is probably moderate. 09/17/17: Thoracic spine CT: T9-T10 - b/l ligamentum flavum calcifications. t10- t11 calcified left ligamentum flavum, encroaching on the medial aspect of the L neural foramen causing stenosis. anterolateral degenerative spondylosis. clinically correlate with radiculopathy in distribution of the L 10th thoracic nerve. heterogeneous attenuation of the thryoid gland, ultrasound for further evaluation be considered. 09/17/17: C-spine w/o contrast: no fx, compression deformities, subluxation, prevertebral soft tissue swelling. 09/17/17: CXR: wnl, no acute changes 09/18/17: GB US: diffuse fatty infiltration of liver, biliary sludge in GB ASSESSMENT/PLAN: 52 y/o F w/ PMH DM who comes into the ED c/o a 1 week history of L sided flank pain as well as nausea and vomiting. #L sided flank pain, with nausea, vomiting -possible 2/2 nephrolithiasis, impacted stool, gallstones -RUQ sono without evidence of gallstones -Tomorrow for EGD to rule out marginal ulcerations -continue PPI 40mg IVP BID -F/u gastric emptying study -Nausea - may use compazine PRN, or phenergan. do not use zofran or reglan d/ t prolonged Qtc -pain control- avoid use of morphine. as per pharmacy, safe to use toradol PRN -bowel regimen- continue miralax -Bowel rest and NPO for endoscopy tomorrow -GI: Dr. Carrizales on board #Hx hepatitis -F/u hep panel #HTN- uncontrolled -likely 2/2 pain -not on home meds for HTN #DM -Holding home metformin 500mg PO BID -ISS -BGM #F/E/N IV NS 100 cc/hr continue to follow lytes NPO, bowel rest #PPX Hep 5000 SQ TID - will hold after midnight as pt for procedure tomorrow SCD's #Dispo continued monitoring on med-surg Visit type - Emergency Visit Emergency Visit: No - New Patient This patient is new to me today: Yes Date on this admission: 09/18/17 - Critical Care Critical Care patient: No
[2017-09-18] MEDS ORDERED: PROCHLORPERAZINE INJECTION 10 MG/2 ML VIAL IVPB ONE (19:15)
[2017-09-18] MEDS ORDERED: KETOROLAC TROMETHAMINE 15 MG/ML VIAL IVPUSH ONE (19:30)
[2017-09-18] MEDS ORDERED: PT OWN MED DRAWER 7, Y5N ONE (20:07)
[2017-09-19] MEDS: SODIUM CHLORIDE 1,000 ML IV SCH (03:31)
[2017-09-19] MEDS: INSULIN SLIDING SCALE (NOVOLOG) 1 VIAL SQ SCH ×2 (06:09→11:00)
[2017-09-19] MEDS ORDERED: traMADol HCL 50 MG TABLET PO ONE (06:32)
[2017-09-19] MEDS ORDERED: KETOROLAC TROMETHAMINE 30 MG/1 ML VIAL IVPUSH ONE (06:48)
[2017-09-19] MEDS ORDERED: PROCHLORPERAZINE INJECTION 10 MG/2 ML VIAL IVPB ONE (08:20)
[2017-09-19] MEDS ORDERED: ACETAMINOPHEN 1000 MG/100 ML VIAL (NON FORMULARY) IVPB ONE (08:30)
[2017-09-19 08:34] LABS: BASO % 0.2 % (0-2.0); EOS % 0.1 % (0-4.5); HEMOGLOBIN 11.3 GM/dL (10.7-15.3); LYMPH % 24.4 % (8-40); MCH 32.9 pg (25.7-33.7); MCHC 35.2 g/dl (32.0-36.0); MEAN CELL VOLUME 93.4 fl (80-96); MEAN PLT VOLUME 6.9 fl (7.5-11.1); MONO % 6.5 % (3.8-10.2); NEUT % 68.8 % (42.8-82.8); PLATELET COUNT 278 K/MM3 (134-434); RBC 3.43 M/mm3 (3.60-5.2); RDW 12.9 % (11.6-15.6); WHITE BLOOD COUNT 6.2 K/mm3 (4.0-10.0)
[2017-09-19 08:53] LABS: CHLORIDE 105 mmol/L (98-107); POTASSIUM 3.5 mmol/L (3.5-5.1); SODIUM 141 mmol/L (136-145)
[2017-09-19 09:18] LABS: ANION GAP 12 (8-16); BLOOD UREA NITROGEN 15 mg/dL (7-18); CO2 24 mmol/L (21-32); CREATININE 0.8 mg/dL (0.55-1.02); GLUCOSE,RANDOM 178 mg/dL (74-106); MAGNESIUM 2.2 mg/dL (1.8-2.4); PHOSPHOROUS 2.9 mg/dL (2.5-4.9)
[2017-09-19] MEDS ORDERED: PT OWN MED DRAWER 7, Y5N ONE (09:20)
[2017-09-19] MEDS ORDERED: LIDOCAINE 5% TOPICAL PATCH TP ONE (10:00)
[2017-09-19] MEDS: POLYETHYLENE GLYCOL 3350 119 GM BTL PO SCH (10:07)
[2017-09-19] MEDS: PANTOPRAZOLE SODIUM 40 MG VIAL IVPUSH SCH (11:00)
[2017-09-19] MEDS ORDERED: PROPOFOL 20 ML ONE ×4 (11:05)
[2017-09-19] MEDS ORDERED: LIDOCAINE VISCOUS 2% ORAL/TOP 20 ML UNIT-DOSE CUP ONE (11:06)
--- NOTE | 2017-09-19 11:19 | PROC ---
Endoscopy Procedure Endoscopy procedure completed. Please see scanned procedure report. Gastroesophagial stricture. Transfer to pt's surgeon at [facility]. Liquid diet
--- NOTE | 2017-09-19 13:41 | PN ---
Teaching Attending Note Name of Resident: Hillary Jefferson ATTENDING PHYSICIAN STATEMENT I saw and evaluated the patient. I reviewed the resident's note and discussed the case with the resident. I agree with the resident's findings and plan as documented. SUBJECTIVE: Cont to have pain under her L breast and around her axilla to the back nausea and vomiting OBJECTIVE: NAD CV: RRR lungs: CTAB Ext: no edema Abd: soft, ND, obese, NT. no tenderness over L lower ribs or back or spine ASSESSMENT AND PLAN: 52 y/o lady with h/o Dm and HTN who presented with L sided flank pain and N/V 1- L sided flank pain /N/V : EGD showed gastroesophageal stricture . clear liquid diet case was d/w surgeon at [facility] and pt was accepted for a transfer avpid QTc prolonging anti-emetics 2- HTN: start low dose lisinopril 3- DM : hold metformin cont SSI Dispo : accepted for Tx to [facility]
[2017-09-19] MEDS ORDERED: SUCRALFATE 1 GM/10 ML UNIT DOSE CUPS PO SCH (14:00)
[2017-09-19 14:40] VITALS: BP 161/95; PULSE 92; TEMP 98.3
--- NOTE | 2017-09-19 18:50 | DS ---
Physical Exam: SUBJECTIVE: Patient seen and examined at bedside. Overnight, pt with continued epigastric and L flank pain. Received toradol 30mg, 15mg. This AM, still appeared very uncomfortable received Tylenol IVx 1 . Given compazine for nausea. Discussed transfer with patient in Slovenian; d/w family at bedside. In agreement. OBJECTIVE: Vital Signs Period Temp Pulse Resp BP Sys/Sierra Pulse Ox Last 24 Hr 97.8 F-98.4 F 50-92 14-20 140-174/65-95 95-99 PHYSICAL EXAM GENERAL: The patient appears uncomfortable. awake, alert, and fully oriented, in moderate distress HEAD: Normal with no signs of trauma. EYES: PERRL, extraocular movements intact, sclera anicteric, conjunctiva clear. ENT: Ears normal, nares patent NECK: Trachea midline, full range of motion, supple. LUNGS: Breath sounds equal, shallow breaths - posteriorly HEART: +tachycardic rate and rhythm, S1, S2 without murmur, rub or gallop. ABDOMEN: +L flank pain- diffusely TTP. (-) CVA tenderness. EXTREMITIES: 2+ pt pulses, warm, well-perfused, no edema. NEUROLOGICAL: pt would not comply with exam d/t pain. PSYCH: Normal mood, normal affect. SKIN: Warm, dry, normal turgor LABS 09/17/17 09/17/17 09/18/17 11:53 11:53 06:00 WBC 5.5 Hgb 12.5 Hct 35.9 Plt Count 339 D Sodium 140 Potassium 4.5 Chloride 108 H Anion Gap 8 BUN 9 Creatinine 0.8 Random Glucose 173 H Hemoglobin A1c % 7.2 H CK-MB (CK-2) 1.12 Troponin I < 0.02 TSH 09/18/17 09/18/17 09/19/17 06:30 06:30 08:00 WBC 5.8 Hgb 12.2 Hct 35.1 Plt Count 299 Sodium 140 141 Potassium 3.8 3.5 Chloride 104 105 Anion Gap 11 BUN 8 Creatinine 0.8 Random Glucose 199 H 178 H Hemoglobin A1c % CK-MB (CK-2) Troponin I TSH 7.24 H 09/19/17 08:00 WBC 6.2 Hgb 11.3 Hct 32.0 L Plt Count 278 Potassium IMAGING 09/17/17: CTAP w/contrast: no definite CT findings of acute pathology. s/p bariatric gastric surgery. diffuse hepatic steatosis. mild R renal upper pole cortical scarring. possible punctate bilateral nonobstructing renal calculi ( vs. representing excreted contrast). colonic fecal retention which is probably moderate. 09/17/17: Thoracic spine CT: T9-T10 - b/l ligamentum flavum calcifications. t10- t11 calcified left ligamentum flavum, encroaching on the medial aspect of the L neural foramen causing stenosis. anterolateral degenerative spondylosis. clinically correlate with radiculopathy in distribution of the L 10th thoracic nerve. heterogeneous attenuation of the thryoid gland, ultrasound for further evaluation be considered. 09/17/17: C-spine w/o contrast: no fx, compression deformities, subluxation, prevertebral soft tissue swelling. 09/17/17: CXR: wnl, no acute changes 09/18/17: GB US: diffuse fatty infiltration of liver, biliary sludge in GB 09/19/17: Endoscopy report: no complications. a gastroesophageal uniform structure precluded evaluation of distal structures. recommended transfer of patient to surgeon who operated on her in July at [facility]. Maintain liquid diet. [place] HOSPITAL COURSE: Date of Admission:09/17/17 Date of Discharge: 09/19/17 Admit diagnosis: L flank pain, abdominal pain with N/V 52 y/o F w/ PMH DM who came into the ED c/o a 1 week history of left sided flank pain as well as nausea and vomiting. The patient described a dull pain centered along her left flank which radiated to her back, chest and abdomen. The pain was 10/10 in intensity and had no exacerbating or alleviating factors. _Pain was a/w several episodes of NBNB emesis. Pt has been unable to tolerate PO for the past three days prior to admission due to pain and has not had a BM for the past two days prior. Pt admitted for L flank pain, abdominal pain a/w N/ V. While pt was on the floor, she was in a great amount of pain and was medicated multiple times with toradol, as well as IV Tylenol. She received compazine for nausea as her Qtc was prolonged (488). Pt underwent CTAP which revealed possible bilateral nonobstructing renal calculi and colonic fecal retention. She was thus given IVF, pain control (initially morphine, switched to toradol), and recommended to strain her urine. Pt was also tx with bowel regimen for constipation which resulted in BM, without further regimen needed. Pt seen by GI and underwent upper endoscopy which revealed gastroesophageal stricture. For this reason, she was recommended transfer to [facility] under the care of the surgeon who did her gastric bypass, Dr. Newman. Case was discussed by copywriter in detail with Dr. Newman, questions answered. Pt accepted for transfer. CDs of images as well as printed color endoscopy report provided upon transportation . Case d/w patient and family members at bedside (including daughter). Questions answered. She is transferred to [facility] continued on protonix, miralax, IVF, sucralfate as per GI, liquid diet, and ISS. Minutes to complete discharge: 45 Discharge Summary Reason For Visit: URINARY TRACT INFECTION/ INTRACTABLE PAIN Condition: Stable - Instructions Diet, Activity, Other Instructions: You were in the hospital because you had nausea and vomiting. You were seen by the medicine and gastroenterology (GI) teams. Today, you had a procedure done called an upper endoscopy. It showed that you had a stricture (narrowing) in the gastroesophageal junction. This is the junction between your stomach and esophagus. You are being transferred to [facility] under the care of Dr. Newman, the surgeon who did your gastric bypass. Copies of your imaging will be sent with transport to the facility. Your visit You were seen by the medicine and gastroenterology (GI) teams. Medications We had held your Metformin 500mg twice daily and started you on Insulin. Please follow [facility] recommendations regarding this on discharge from there. We will continue you on the following upon your transfer: -Sucralfate 1 gram by mouth four times a day -Miralax 17gm daily -Protonix 40mg IV push twice a day -Lisinopril 5mg daily -Insulin sliding scale -IV fluids 100 cc/hr - lisinopril 5 mg daily for Hypertension Upon transfer to your facility, we recommend using compazine for nausea if needed, to prevent prolongation of Qtc Avoid QTC prolonging agents as QTC is 488. Care You will be continued on a liquid diet for now, as per our GI physician. Follow up Please follow up with the following physicians: -Dr. Carrizales, the wash crew person who saw you in the hospital - 1 week -Dr. Sotelo - your primary care physician - 1 week to discuss your visit -Dr. Guillermo Newman- your surgeon at [facility]- this week If you develop shortness of breath, or chest pain, please go to the hospital. We hope you feel better soon. Referrals: Paty CHEN, Guillermo [Other] - 1 Week Kodak Carrizales MD [Staff Physician] - 1 Week Lily Henry MD [Primary Care Provider] - 1 Week Disposition: TRANSFER ACUTE CARE/OTHER HOSP - Home Medications Comprehensive Discharge Medication List: Ambulatory Orders Insulin Sliding Scale [Novolog Vial Sliding Scale -] 1 vial SQ ACHS units 09/19 Lisinopril [Prinivil] 5 mg PO DAILY #30 tablet 09/19/17 Pantoprazole Sodium [Protonix IV] 40 mg IVPUSH BID vial 09/19/17 Polyethylene Glycol 3350 [Miralax 119 gm Btl -] 17 gm PO DAILY bottle 09/19/17 Sodium Chloride [Normal Saline -] 100 ml IV ASDIR infus.bag 09/19/17 Sucralfate Oral Suspension [Carafate Oral Suspension -] 1 gm PO QID ml This patient is new to me today: No Emergency Visit: No Critical Care patient: No - Discharge Referral Referred to [facility] No
[2017-09-19] MEDS ORDERED: LIDOCAINE PATCH REMOVAL MC SCH (22:00)
[2017-09-20 06:06] LABS: HBsAG SCREEN Negative (Negative); HEP A AB, IGM Negative (Negative); HEPATITIS B CORE ANTIBODY Negative (Negative); HEPATITIS B CORE ANTIBODY,IGM Negative (Negative)
== END 2017-09-19 15:23 | disposition short-term general hospital (02) ==
LOC: JER 10:34 → JERBED 20:16 → J6S 09-18 01:39
PROVIDERS: ADMIT Internal Medicine; ATTEND Internal Medicine
PROC: 3E03329 Introduction of Other Anti-infective into Peripheral Vein, Percutaneous Approach (ICD-10-PCS; 2017-09-17)
PROC: 3E0333Z Introduction of Anti-inflammatory into Peripheral Vein, Percutaneous Approach (ICD-10-PCS; 2017-09-17)
PROC: 3E033NZ Introduction of Analgesics, Hypnotics, Sedatives into Peripheral Vein, Percutaneous Approach (ICD-10-PCS; 2017-09-17)
PROC: 3E033GC Introduction of Other Therapeutic Substance into Peripheral Vein, Percutaneous Approach (ICD-10-PCS; 2017-09-17)
PROC: 3E0337Z Introduction of Electrolytic and Water Balance Substance into Peripheral Vein, Percutaneous Approach (ICD-10-PCS; 2017-09-17)
PROC: 3E013GC Introduction of Other Therapeutic Substance into Subcutaneous Tissue, Percutaneous Approach (ICD-10-PCS; 2017-09-17)
PROC: 0DJ08ZZ Inspection of Upper Intestinal Tract, Via Natural or Artificial Opening Endoscopic (ICD-10-PCS; principal; 2017-09-19 13:00)
DX: N30.01 Acute cystitis with hematuria (principal); R10.9 Unspecified abdominal pain; K31.84 Gastroparesis; Z79.4 Long term (current) use of insulin; K31.9 Disease of stomach and duodenum, unspecified; E11.43 Type 2 diabetes mellitus with diabetic autonomic (poly)neuropathy; E11.65 Type 2 diabetes mellitus with hyperglycemia; Z79.84 Long term (current) use of oral hypoglycemic drugs; N20.0 Calculus of kidney; R19.7 Diarrhea, unspecified; R10.13 Epigastric pain; K22.2 Esophageal obstruction; I10 Essential (primary) hypertension; Z98.84 Bariatric surgery status; Z88.6 Allergy status to analgesic agent; Z91.041 Radiographic dye allergy status
CPT/HCPCS: 36415; 71046-TC-FY; 72125-TC; 72128-TC; 74177-TC; 76705-TC; 80048; 80053; 81003; 81015; 82550; 82553; 82962; 83036; 83605; 83690; 83735; 84100; 84443; 84484; 84703; 85025; 85027; 85610; 85730; 86704; 86705; 86708; 86850; 86900; 86901; 87340; 93005; 93010; 96361; 96365; 96372; 96375; 96376; 99285-25; G0378; J0131; J1644; J7030

== ENCOUNTER 2018-03-12 10:19 | Emergency (ER) | payer OTHER ==
[2018-03-12 10:24] VITALS: BP 147/92; PULSE 97; TEMP 97.6; BMI 24.7
--- NOTE | 2018-03-12 11:48 | PDOC ---
History of Present Illness - General Chief Complaint: Injury Stated Complaint: LT SIDE PAIN Time Seen by Provider: 03/12/18 11:06 History Source: Patient Exam Limitations: No Limitations - History of Present Illness Initial Comments: 03/12/18 11:43 52 yr female states she fell at a store one month ago has continued pain to the left shoulder and left rib area. Pt admits going to [facility] ER at time of fall had negative xrays. Pt denies SOB no chest pain or diff breathing. Occurred: reports: other (last month ) Severity: reports: mild Past History - Past Medical History Allergies/Adverse Reactions: Allergies Allergy/AdvReac Type Severity Reaction Status Date / Time aspirin Allergy Intermediate Hives Verified 03/12/18 10:24 Penicillins Allergy Intermediate Hives Verified 03/12/18 10:24 Iodinated Contrast- Oral and Allergy Mild Rash Verified 03/12/18 10:24 IV Dye Home Medications: Ambulatory Orders Metformin HCl [Glucophage] 500 mg PO BID 10/25/17 Anemia: No Asthma: No Cancer: No CVA: No COPD: No Diabetes: Yes HTN: Yes Liver Disease: Yes (fatty liver) Thyroid Disease: No - Surgical History Abdominal Surgery: Yes (gastric bypass 08/01/17, and hx of sleeve) Appendectomy: No Cholecystectomy: No GI Surgery: Yes (sleeve) - Immunization History Td Vaccination: Yes Immunization Up to Date: Yes - Suicide/Smoking/Psychosocial Hx Smoking Status: No Smoking History: Never smoked Years of Tobacco Use: 0 Have you smoked in the past 12 months: No Number of Cigarettes Smoked Daily: 0 Cigars Per Day: 0 Information on smoking cessation initiated: No Hx Alcohol Use: No Drug/Substance Use Hx: No Substance Use Type: None Hx Substance Use Treatment: No Trauma Specific PMHX - Complaint Specific PMHX Arthritis: No Back Injury: No Neck Injury: No Hx Sacro Iliac Joint Dysfunction: No Review of Systems - Review of Systems Able to Perform ROS?: Yes Is the patient limited Setswana proficient: No Constitutional: No: Symptoms Reported HEENTM: No: Symptoms Reported Respiratory: No: Symptoms reported Cardiac (ROS): No: Symptoms Reported ABD/GI: No: Symptoms Reported Musculoskeletal: Yes: Symptoms Reported *Physical Exam - Vital Signs Last Vital Signs Temp Pulse Resp BP Pulse Ox 97.6 F 97 H 19 147/92 100 03/12/18 10:22 03/12/18 10:22 03/12/18 10:22 03/12/18 10:22 03/12/18 10:22 - Physical Exam General Appearance: Yes: Nourished, Appropriately Dressed HEENT: positive: EOMI, RM Neck: positive: Supple. negative: Tender Respiratory/Chest: positive: Lungs Clear, Normal Breath Sounds, Other (tender to left rib under breast , no crepitus no bruising ) Cardiovascular: positive: Regular Rhythm, Regular Rate Gastrointestinal/Abdominal: positive: Normal Bowel Sounds, Soft Musculoskeletal: positive: Normal Inspection. negative: CVA Tenderness, CVA Tenderness (R), Decreased Range of Motion, Muscle Spasm, Vertebral Tenderness Extremity: positive: Normal Capillary Refill, Normal Inspection, Normal Range of Motion, Other (left shoulder with FROM neg swelling or deformity nv intact ) Integumentary: positive: Normal Color, Dry, Warm Neurologic: positive: Fully Oriented, Alert, Normal Mood/Affect, Normal Response , Motor Strength 5/5 Moderate Sedation - Procedure Monitoring Vital Signs: Procedure Monitoring Vital Signs Temperature 97.6 F 03/12/18 10:22 Pulse Rate 97 H 03/12/18 10:22 Respiratory Rate 19 03/12/18 10:22 Blood Pressure 147/92 03/12/18 10:22 O2 Sat by Pulse Oximetry (%) 100 03/12/18 10:22 ED Treatment Course - RADIOLOGY Radiology Studies Ordered: Category Date Time Status RIBS-LEFT SIDE [RAD] Stat Radiology 03/12/18 11:15 Taken SHOULDER-LEFT [RAD] Stat Radiology 03/12/18 11:15 Taken *DC/Admit/Observation/Transfer Diagnosis at time of Disposition: Rib pain on left side Shoulder pain Qualifiers: Chronicity: acute Laterality: left Qualified Code(s): M25.512 - Pain in left shoulder - Discharge Dispostion Disposition: HOME Condition at time of disposition: Good - Referrals Referrals: Naresh Martínez MD [Staff Physician] - - Patient Instructions Additional Instructions: please follow with or for follow up take ibuprofen or tylenol as directed for pain - Post Discharge Activity
== END 2018-03-12 12:12 | disposition home or self-care (01) ==
LOC: JERFT 10:19
DX: M25.512 Pain in left shoulder (principal); M25.552 Pain in left hip; I10 Essential (primary) hypertension; E11.9 Type 2 diabetes mellitus without complications; K76.0 Fatty (change of) liver, not elsewhere classified; Z98.84 Bariatric surgery status; Z88.0 Allergy status to penicillin; Z88.6 Allergy status to analgesic agent; Z91.041 Radiographic dye allergy status
CPT/HCPCS: 71101-TC-LT-FY; 73030-TC-LT-FY; 99281-25

== ENCOUNTER 2018-05-22 19:10 | Emergency (ER) | payer OTHER ==
[2018-05-22] MEDS ORDERED: ONDANSETRON 4 MG/2 ML VIAL IVPUSH ONE (19:20)
[2018-05-22] MEDS ORDERED: SODIUM CHLORIDE 1,000 ML IV STA (19:20)
[2018-05-22] MEDS ORDERED: morphine CARPU-JECT 2 MG/1 ML DISP.SYRIN IVPUSH ONE (19:20)
--- NOTE | 2018-05-22 19:21 | PDOC ---
Rapid Medical Evaluation Time Seen by Provider: 05/22/18 19:15 Medical Evaluation: Allergies Allergy/AdvReac Type Severity Reaction Status Date / Time aspirin Allergy Intermediate Hives Verified 03/12/18 10:24 Penicillins Allergy Intermediate Hives Verified 03/12/18 10:24 Iodinated Contrast- Oral and Allergy Mild Rash Verified 03/12/18 10:24 IV Dye 05/22/18 19:17 The patient presents with a chief complaint of: left flank , luq pain, was at [facility] yesterday and told to call surgeon x 2 days for gallstones, no fever, + nausea, recent gastric bypass July 2017 I have performed a brief in-person evaluation of this patient: tachy 140, afebrile Pertinent physical exam findings: noted luq pain I have ordered the following: cbc, comp, urine, utox, ivf, zofran, morphine The patient will proceed to the ED for further evaluation. Discharge Disposition - Diagnosis Abdominal pain Qualifiers: Abdominal location: left upper quadrant Qualified Code(s): R10.12 - Left upper quadrant pain - Discharge Dispostion Disposition: HOME Condition at time of disposition: Good - Referrals Referrals: Lily Henry MD [Primary Care Provider] - - Patient Instructions Printed Discharge Instructions: DI for Abdominal Pain-Adult Additional Instructions: You were seen in the emergency room today for abdominal pain. The blood work was normal. The ultrasound report was given to you and shows sludge in the gallbladder but no infection. I do not know the exact cause of your pain but I recommend continuing to go to pain clinic and see your GI doctor and the surgeon. You can continue to take Tylenol for the pain. If you need something stronger, I suggest seeing your doctors. Keep yourself well hydrated. It is important that you drink water. Please come back to the emergency room if pain gets worse, vomiting gets worse, you are unable to have bowel movements, you develop fever or if any new concerning symptom develops. Thank you - Post Discharge Activity
[2018-05-22 19:22] VITALS: BMI 24.0
[2018-05-22] MEDS ORDERED: morphine SULFATE 4 MG/ML VIAL ONE (19:37)
[2018-05-22] MEDS ORDERED: ONDANSETRON 4 MG/2 ML VIAL ONE (19:38)
[2018-05-22 19:54] LABS: BASO % 0.7 % (0-2.0); EOS % 1.2 % (0-4.5); HEMATOCRIT 36.5 % (32.4-45.2); HEMOGLOBIN 12.7 GM/dL (10.7-15.3); LYMPH % 43.8 % (8-40); MCH 35.3 pg (25.7-33.7); MCHC 34.7 g/dl (32.0-36.0); MEAN CELL VOLUME 101.7 fl (80-96); MEAN PLT VOLUME 7.1 fl (7.5-11.1); MONO % 8.8 % (3.8-10.2); NEUT % 45.5 % (42.8-82.8); PLATELET COUNT 359 K/MM3 (134-434); RBC 3.59 M/mm3 (3.60-5.2); RDW 15.1 % (11.6-15.6); WHITE BLOOD COUNT 5.3 K/mm3 (4.0-10.0)
[2018-05-22 20:23] LABS: ALBUMIN 3.3 g/dl (3.4-5.0); ALK PHOS 105 U/L (45-117); ANION GAP 9 MMOL/L (8-16); BILIRUBIN,TOTAL 1.3 mg/dL (0.2-1); BLOOD UREA NITROGEN 7 mg/dL (7-18); CALCIUM 8.2 mg/dL (8.5-10.1); CHLORIDE 108 mmol/L (98-107); CO2 25 mmol/L (21-32); CREATININE 0.7 mg/dL (0.55-1.3); GLUCOSE,RANDOM 94 mg/dL (74-106); LIPASE 31 U/L (73-393); POTASSIUM 3.7 mmol/L (3.5-5.1); SGOT/AST 37 U/L (15-37); SGPT/ALT 37 U/L (13-61); SODIUM 142 mmol/L (136-145); TOT PROT 6.1 g/dl (6.4-8.2)
--- NOTE | 2018-05-22 21:14 | PDOC ---
History of Present Illness - General Chief Complaint: Pain, Acute Stated Complaint: ABD PAIN Time Seen by Provider: 05/22/18 19:15 History Source: Patient Exam Limitations: Language Barrier - History of Present Illness Initial Comments: 05/22/18 21:01 Pt is a 52yo F with PMH of HTN, DM, Gastric Bypass July 2017, chronic pain presenting to ED with complaints of left sided abdominal pain x 7 months. Pt states that she has had this pain since the bypass surgery. She went to [place] yesterday and had a CT scan which showed stones in the gallbladder. She comes today for the pain. She endorses diarrhea 3 days ago and nbnb vomiting today. Pain is left sided, radiates to the left flank and associated with nausea. She also endorses pain in the lower legs bilaterally and SOB due to the pain. She has been unable to eat due to the pain. She went to [place] May 10 - and states the felt the same there. Denies fevers, chills, recent illnesses , urinary symptoms, injuries, syncope. 05/22/18 21:16 Past History - Past Medical History Allergies/Adverse Reactions: Allergies Allergy/AdvReac Type Severity Reaction Status Date / Time aspirin Allergy Intermediate Hives Verified 05/22/18 19:22 Penicillins Allergy Intermediate Hives Verified 05/22/18 19:22 Iodinated Contrast- Oral and Allergy Mild Rash Verified 05/22/18 19:22 IV Dye Home Medications: Ambulatory Orders Metformin HCl [Glucophage] 500 mg PO BID 10/25/17 Anemia: No Asthma: No Cancer: No CVA: No COPD: No Diabetes: Yes HTN: Yes Liver Disease: Yes (fatty liver) Thyroid Disease: No - Surgical History Abdominal Surgery: Yes (gastric bypass 08/01/17, and hx of sleeve) Appendectomy: No Cholecystectomy: No GI Surgery: Yes (sleeve) - Immunization History Td Vaccination: Yes Immunization Up to Date: Yes - Suicide/Smoking/Psychosocial Hx Smoking Status: No Smoking History: Never smoked Years of Tobacco Use: 0 Have you smoked in the past 12 months: No Number of Cigarettes Smoked Daily: 0 Cigars Per Day: 0 Information on smoking cessation initiated: No Hx Alcohol Use: No Drug/Substance Use Hx: No Substance Use Type: None Hx Substance Use Treatment: No *Physical Exam - Vital Signs Last Vital Signs Temp Pulse Resp BP Pulse Ox 98.0 F 141 H 18 117/82 100 05/22/18 19:17 05/22/18 19:17 05/22/18 19:17 05/22/18 19:17 05/22/18 19:17 Moderate Sedation - Procedure Monitoring Vital Signs: Procedure Monitoring Vital Signs Temperature 98.0 F 05/22/18 19:17 Pulse Rate 141 H 05/22/18 19:17 Respiratory Rate 18 05/22/18 19:17 Blood Pressure 117/82 05/22/18 19:17 O2 Sat by Pulse Oximetry (%) 100 05/22/18 19:17 ED Treatment Course - LABORATORY CBC & Chemistry Diagram: 05/22/18 19:24 05/22/18 19:24 - ADDITIONAL ORDERS Additional order review: Laboratory Results 05/22/18 19:24 Sodium 142 Potassium 3.7 Chloride 108 H Carbon Dioxide 25 Anion Gap 9 BUN 7 Creatinine 0.7 Creat Clearance w eGFR > 60 Random Glucose 94 Calcium 8.2 L Total Bilirubin 1.3 H AST 37 ALT 37 Alkaline Phosphatase 105 Total Protein 6.1 L Albumin 3.3 L Lipase 31 L 05/22/18 19:24 RBC 3.59 L MCV 101.7 H MCHC 34.7 RDW 15.1 MPV 7.1 L Neutrophils % 45.5 D Lymphocytes % 43.8 H D Monocytes % 8.8 Eosinophils % 1.2 D Basophils % 0.7 D - Medications Given in the ED: ED Medications Discontinued Medications Generic Name Dose Route Start Last Admin Trade Name Freq PRN Reason Stop Dose Admin Sodium Chloride 1,000 mls @ 1,000 mls/hr 05/22/18 19:20 05/22/18 19:45 Normal Saline - IV 05/22/18 20:19 1,000 mls/hr ASDIR STA Administration Morphine Sulfate 4 mg 05/22/18 19:20 05/22/18 19:45 Morphine Injection - IVPUSH 05/22/18 19:21 4 mg ONCE ONE Administration Ondansetron HCl 4 mg 05/22/18 19:20 05/22/18 19:45 Zofran Injection IVPUSH 05/22/18 19:21 4 mg ONCE ONE Administration Medical Decision Making - Medical Decision Making 05/23/18 01:20 sister came. says pt has been going to pain management for the pain. has not changed. has gone to [place] and seen surgeon who did bypass, no infectious process or abnormalities per surgeon. [facility] put me on hold for like 10 minutes. -Abdominal u/s. *DC/Admit/Observation/Transfer Diagnosis at time of Disposition: Abdominal pain Qualifiers: Abdominal location: left upper quadrant Qualified Code(s): R10.12 - Left upper quadrant pain - Discharge Dispostion Disposition: HOME Condition at time of disposition: Good Decision to Admit order: No - Referrals Referrals: Lily Henry MD [Primary Care Provider] - - Patient Instructions Printed Discharge Instructions: DI for Abdominal Pain-Adult Additional Instructions: You were seen in the emergency room today for abdominal pain. The blood work was normal. The ultrasound report was given to you and shows sludge in the gallbladder but no infection. I do not know the exact cause of your pain but I recommend continuing to go to pain clinic and see your GI doctor and the surgeon. You can continue to take Tylenol for the pain. If you need something stronger, I suggest seeing your doctors. Keep yourself well hydrated. It is important that you drink water. Please come back to the emergency room if pain gets worse, vomiting gets worse, you are unable to have bowel movements, you develop fever or if any new concerning symptom develops. Thank you - Post Discharge Activity
[2018-05-22 22:22] LABS: COCAINE, UR NEGATIVE ng/ml (CUTOFF=300); METHADONE, UR NEGATIVE ng/ml (CUTOFF=300); PHENCYCLIDINE,URINE NEGATIVE ng/ml (CUTOFF=25); URINE AMPHETAMINES NEGATIVE ng/ml (CUTOFF=500); URINE BARBITURATES NEGATIVE ng/ml (CUTOFF=200); URINE BENZODIAZEPINES NEGATIVE ng/ml (CUTOFF=200)
[2018-05-22 22:24] LABS: OPIATES, URI POSITIVE ng/ml (CUTOFF=300)
[2018-05-22 22:32] LABS: URINE APPEARANCE CLEAR; URINE BILIRUBIN NEGATIVE (<2.0 mg/dL); URINE COLOR YELLOW; URINE GLUCOSE (UA) NEGATIVE (NEGATIVE); URINE KETONE NEGATIVE (NEGATIVE); URINE LEUK ESTERASE NEGATIVE (NEGATIVE); URINE NITRITE NEGATIVE (NEGATIVE); URINE PROTEIN NEGATIVE (NEGATIVE); URINE UROBILINOGEN 4.0 E.U/dl mg/dL (0.2-1.0)
[2018-05-22] MEDS ORDERED: LIDOCAINE VISCOUS 2% ORAL/TOP 20 ML UNIT-DOSE CUP MM ONE (22:49)
[2018-05-22] MEDS ORDERED: MAG HYDROX/AL HYDROX/SIMETH 30 ML UNIT-DOSE CUP PO ONE (22:49)
--- NOTE | 2018-05-22 22:49 | PDOC ---
Attending Attestation - HPI HPI: 05/23/18 00:56 The patient is a 52 year old with a PMH of HTN, DM, s/p gastric bypass on July 2017 who presents to the ED with chronic left sided abdominal pain since her gastric bypass surgery. Patient has been seen an [place] multiple times for similar abdominal pain and has been evaluated by her surgeon and GI doctor. Patient was seen at [facility] yesterday and was diagnosed with gall stones. Patient denies any chest pain, shortness of breath, fever, chills, urinary symptoms, recent trauma. Allergies: Aspirin, penicillins, contrast Surgeries: s/p gastric bypass Social Hx: No reported alcohol, drug or cigarette use. PCP: Dr. Henry - Physicial Exam PE: 05/23/18 01:02 ADULT PHYSICAL EXAM Constitutional: Awake, alert, oriented. No acute distress. Cardiovascular: (+) Tachycardic. Regular rhythm. S1, S2 regular. Distal pulses are 2+ and symmetric. Pulmonary/Chest: No evidence of respiratory distress. Clear to auscultation bilaterally No wheezing, rales or rhonchi. Abdominal: Soft and non-distended. (+) Left sided abdominal tenderness. Negative gallardo's. No rebound, guarding or rigidity. No organomegaly. No palpable masses. Good bowel sounds. Back: No CVA tenderness. Musculoskeletal: No edema. No cyanosis. No clubbing. Full range of motion in all extremities. Nocalf tenderness. Radial/pedal pulses are intact and 2+ bilaterally Skin: Skin is warm and dry. No petechiae. No purpura. Neurological: Alert and oriented to person, place, and time. Cranial nerves II -XII are grossly intact. Normal speech. Strength is grossly symmetric. No sensory deficits. Psychiatric: Good eye contact. Normal interaction, affect and behavior. - Medical Decision Making 05/23/18 01:17 Imaging: US Abdomen Impression: Mildly fatty liver. Gallbladder sludge without secondary signs of cholecystitis. Reported by: Dr. Camacho <Hannah Corrigan - Last Filed: 05/23/18 01:17> - Resident Resident Name: Kiera Schuster - ED Attending Attestation I have performed the following: I have examined & evaluated the patient, The case was reviewed & discussed with the resident, I agree w/resident's findings & plan, Exceptions are as noted - Medical Decision Making 05/22/18 22:18 I, Dr. Agnes Nicholson, DO, attest that this document has been prepared under my direction and personally reviewed by me in its entirety. I further attest, that it accurately reflects all work, treatment, procedures and medical decision -making performed by me. 05/22/18 22:18 a/p: 52yo female with LUQ pain x 10m -assoc with nausea -had gastric bypass in July of 2017 -at [facility] last night and told she has a gallstone -states she saw her surgeon a week ago and told her everything was normal -will repeat labs -will obtain imaging results from [facility] -will medicate and reassess 05/23/18 00:52 labs reviewed pt pending ultrasound 05/23/18 01:16 ultrasound shows sludge, no acute bel no other acute intraabd findings labs reviewed no elevated wbc given pain meds for pain control stable for dc to home and follow up with her surgeon/gi specialist, pain management at [facility] 05/23/18 01:24 pt feeling better <Agnes Nicholson - Last Filed: 05/23/18 01:24> Heart Score/ECG Review - ECG Intrepretation Comment:: 05/23/18 01:05 sinus at 96, nl axis, nl interval, no acute st/t wave findings <Agnes Nicholson - Last Filed: 05/23/18 01:24>
[2018-05-22] MEDS ORDERED: LIDOCAINE VISCOUS 2% ORAL/TOP 20 ML UNIT-DOSE CUP ONE (23:03)
[2018-05-22] MEDS ORDERED: MAG HYDROX/AL HYDROX/SIMETH 30 ML UNIT-DOSE CUP ONE (23:04)
[2018-05-22] MEDS ORDERED: morphine CARPU-JECT 2 MG/1 ML DISP.SYRIN IM ONE (23:43)
[2018-05-23] MEDS ORDERED: MORPHINE SULFATE 2 MG/ML VIAL ONE (00:26)
[2018-05-23] MEDS ORDERED: morphine SULFATE 4 MG/ML VIAL ONE (00:27)
[2018-05-23 01:42] VITALS: BP 148/94; PULSE 105; TEMP 98.2
--- NOTE | 2018-05-23 10:18 | EKG ---
Test Reason : Blood Pressure : / mmHG Vent. Rate : 096 BPM Atrial Rate : 096 BPM P-R Int : 140 ms QRS Dur : 068 ms QT Int : 378 ms P-R-T Axes : 054 014 038 degrees QTc Int : 477 ms NORMAL SINUS RHYTHM POSSIBLE LEFT ATRIAL ENLARGEMENT WHEN COMPARED WITH ECG OF 30-SEP-2017 21:52, NO SIGNIFICANT CHANGE WAS FOUND Confirmed by CHACHA RICE MD ([id number]) on 05/23/2018 10:18:27 AM Referred By: Confirmed By:CHACHA RICE MD
== END 2018-05-23 01:43 | disposition home or self-care (01) ==
LOC: JER 19:10
PROC: 3E023NZ Introduction of Analgesics, Hypnotics, Sedatives into Muscle, Percutaneous Approach (ICD-10-PCS; principal; 2018-05-22)
PROC: 3E033NZ Introduction of Analgesics, Hypnotics, Sedatives into Peripheral Vein, Percutaneous Approach (ICD-10-PCS; 2018-05-22)
PROC: 3E033GC Introduction of Other Therapeutic Substance into Peripheral Vein, Percutaneous Approach (ICD-10-PCS; 2018-05-22)
DX: R10.12 Left upper quadrant pain (principal); G89.28 Other chronic postprocedural pain; I10 Essential (primary) hypertension; E11.9 Type 2 diabetes mellitus without complications; Z79.84 Long term (current) use of oral hypoglycemic drugs; Z87.19 Personal history of other diseases of the digestive system; K76.0 Fatty (change of) liver, not elsewhere classified; Z98.84 Bariatric surgery status
CPT/HCPCS: 36415; 76700-TC; 80053; 80307; 81003; 83690; 84484; 85025; 93005; 93010; 99281-25; J7030

== ENCOUNTER 2018-06-06 13:39 | Emergency (ER) | payer OTHER ==
--- NOTE | 2018-06-06 14:13 | PDOC ---
Rapid Medical Evaluation Time Seen by Provider: 06/06/18 14:12 Medical Evaluation: Allergies Allergy/AdvReac Type Severity Reaction Status Date / Time aspirin Allergy Intermediate Hives Verified 05/22/18 19:22 Penicillins Allergy Intermediate Hives Verified 05/22/18 19:22 Iodinated Contrast- Oral and Allergy Mild Rash Verified 05/22/18 19:22 IV Dye 06/06/18 14:12 I performed a brief in-person evaluation of this patient. Chief complaint: Left sided abd pain radiating to low back x 7 months Pertinent physical exam findings: No abd tenderness, + left CVA tenderness I have ordered the following: UA/culture Patient to proceed to the ED for further evaluation. Discharge Disposition - Diagnosis Flank pain - Referrals - Patient Instructions - Post Discharge Activity
[2018-06-06 14:14] VITALS: BP 114/89; PULSE 100; TEMP 98.1; BMI 20.9
[2018-06-06] MEDS ORDERED: morphine CARPU-JECT 2 MG/1 ML DISP.SYRIN IVPUSH ONE (16:35)
[2018-06-06] MEDS ORDERED: MORPHINE SULFATE 2 MG/ML VIAL ONE (17:22)
[2018-06-06 17:36] LABS: BASO % 0.4 % (0-2.0); EOS % 0.6 % (0-4.5); HEMATOCRIT 35.1 % (32.4-45.2); HEMOGLOBIN 12.1 GM/dL (10.7-15.3); LYMPH % 53.4 % (8-40); MCH 34.8 pg (25.7-33.7); MCHC 34.4 g/dl (32.0-36.0); MEAN CELL VOLUME 101.3 fl (80-96); MEAN PLT VOLUME 7.3 fl (7.5-11.1); MONO % 7.9 % (3.8-10.2); NEUT % 37.7 % (42.8-82.8); PLATELET COUNT 304 K/MM3 (134-434); RBC 3.47 M/mm3 (3.60-5.2); WHITE BLOOD COUNT 4.4 K/mm3 (4.0-10.0)
[2018-06-06 17:52] LABS: URINE APPEARANCE CLEAR; URINE BILIRUBIN NEGATIVE (<2.0 mg/dL); URINE COLOR AMBER; URINE GLUCOSE (UA) NEGATIVE (NEGATIVE); URINE KETONE NEGATIVE (NEGATIVE); URINE LEUK ESTERASE NEGATIVE (NEGATIVE); URINE NITRITE NEGATIVE (NEGATIVE); URINE PROTEIN NEGATIVE (NEGATIVE); URINE UROBILINOGEN 4.0 E.U/dl mg/dL (0.2-1.0)
[2018-06-06 17:59] LABS: ALBUMIN 3.1 g/dl (3.4-5.0); ALK PHOS 135 U/L (45-117); ANION GAP 7 MMOL/L (8-16); BILIRUBIN,TOTAL 0.8 mg/dL (0.2-1); BLOOD UREA NITROGEN 14 mg/dL (7-18); CALCIUM 8.6 mg/dL (8.5-10.1); CHLORIDE 102 mmol/L (98-107); CO2 26 mmol/L (21-32); CREATININE 0.6 mg/dL (0.55-1.3); GLUCOSE,RANDOM 91 mg/dL (74-106); LIPASE 41 U/L (73-393); MAGNESIUM 2.3 mg/dL (1.8-2.4); POTASSIUM 3.8 mmol/L (3.5-5.1); SGOT/AST 49 U/L (15-37); SGPT/ALT 42 U/L (13-61); SODIUM 135 mmol/L (136-145); TOT PROT 6.1 g/dl (6.4-8.2)
--- NOTE | 2018-06-06 18:08 | PDOC ---
History of Present Illness - General Chief Complaint: Pain, Acute Stated Complaint: ABD PAIN/ DIZZNESS Time Seen by Provider: 06/06/18 14:12 History Source: Patient Exam Limitations: No Limitations - History of Present Illness Travel History: No Initial Comments: 06/06/18 18:02 52 y/o female presents to the ED with c/o continual luq burning and sharp pain x 3 months. Pt had hx of chronic pain and is on neurontin. Pt denies vomiting, diarrhea, nausea, or urinary/bowel complaints. Pt denies etoh or drug use.Pt states has an appt 06/[address] Riley for endoscopy Timing/Duration: reports: constant Quality: reports: moderate, sharpness Abdominal Pain Onset Location: reports: LUQ Pain Radiation: reports: no radiation Activities at Onset: reports: none Aggravating Factors: improves with: None Alleviating Factors: improves with: None Past History - Travel Traveled outside of the country in the last 30 days: No Close contact w/someone who was outside of country & ill: No - Past Medical History Allergies/Adverse Reactions: Allergies Allergy/AdvReac Type Severity Reaction Status Date / Time aspirin Allergy Intermediate Hives Verified 05/22/18 19:22 Penicillins Allergy Intermediate Hives Verified 05/22/18 19:22 Iodinated Contrast- Oral and Allergy Mild Rash Verified 05/22/18 19:22 IV Dye Home Medications: Ambulatory Orders Metformin HCl [Glucophage] 500 mg PO BID 10/25/17 Anemia: No Asthma: No Cancer: No CVA: No COPD: No Diabetes: Yes HTN: Yes Liver Disease: Yes (fatty liver) Thyroid Disease: No - Surgical History Abdominal Surgery: Yes (gastric bypass 08/01/17, and hx of sleeve) Appendectomy: No Cholecystectomy: No GI Surgery: Yes (sleeve) - Immunization History Td Vaccination: Yes Immunization Up to Date: Yes - Suicide/Smoking/Psychosocial Hx Smoking Status: No Smoking History: Never smoked Years of Tobacco Use: 0 Have you smoked in the past 12 months: No Number of Cigarettes Smoked Daily: 0 Cigars Per Day: 0 Information on smoking cessation initiated: No Hx Alcohol Use: No Drug/Substance Use Hx: No Substance Use Type: None Hx Substance Use Treatment: No Patient Lives Alone: No Lives with/in: sister Review of Systems - Review of Systems Able to Perform ROS?: Yes Constitutional: No: Symptoms Reported HEENTM: No: Symptoms Reported Respiratory: No: Symptoms reported Cardiac (ROS): No: Symptoms Reported ABD/GI: Yes: Abdominal cramping : No: Symptoms Reported Musculoskeletal: No: Symptoms Reported Integumentary: No: Symptoms Reported Neurological: No: Symptoms reported *Physical Exam - Vital Signs Last Vital Signs Temp Pulse Resp BP Pulse Ox 98.1 F 100 H 20 114/89 97 06/06/18 14:10 06/06/18 14:10 06/06/18 14:10 06/06/18 14:10 06/06/18 14:10 - Physical Exam General Appearance: Yes: Nourished, Appropriately Dressed. No: Apparent Distress HEENT: positive: EOMI, RM, TMs Normal, Pharynx Normal. negative: Pale Conjunctivae Neck: positive: Supple Respiratory/Chest: positive: Lungs Clear, Normal Breath Sounds. negative: Respiratory Distress, Accessory Muscle Use Cardiovascular: positive: Regular Rhythm, Regular Rate. negative: Murmur Gastrointestinal/Abdominal: positive: Normal Bowel Sounds, Soft. negative: Tenderness (mild epigastric & luq tenderness) Integumentary: positive: Normal Color, Warm, Moist Neurologic: positive: Motor Strength 5/5 (ambulatory) Moderate Sedation - Procedure Monitoring Vital Signs: Procedure Monitoring Vital Signs Temperature 98.1 F 06/06/18 14:10 Pulse Rate 100 H 06/06/18 14:10 Respiratory Rate 20 06/06/18 14:10 Blood Pressure 114/89 06/06/18 14:10 O2 Sat by Pulse Oximetry (%) 97 06/06/18 14:10 ED Treatment Course - LABORATORY CBC & Chemistry Diagram: 06/06/18 17:04 06/06/18 17:10 - ADDITIONAL ORDERS Additional order review: Laboratory Results 06/06/18 06/06/18 17:10 15:05 Sodium 135 L Potassium 3.8 Chloride 102 Carbon Dioxide 26 Anion Gap 7 L BUN 14 Creatinine 0.6 Creat Clearance w eGFR 104.98 Random Glucose 91 Calcium 8.6 Magnesium 2.3 Total Bilirubin 0.8 AST 49 H ALT 42 Alkaline Phosphatase 135 H Total Protein 6.1 L Albumin 3.1 L Lipase 41 L Urine Color Kimi Urine Appearance Clear Urine pH 6.0 Ur Specific [place] 1.018 Urine Protein Negative Urine Glucose (UA) Negative Urine Ketones Negative Urine Blood Negative Urine Nitrite Negative Urine Bilirubin Negative Urine Urobilinogen 4.0 e.u/dl H Ur Leukocyte Esterase Negative 06/06/18 17:04 RBC 3.47 L MCV 101.3 H MCHC 34.4 RDW 14.0 MPV 7.3 L Neutrophils % 37.7 L Lymphocytes % 53.4 H D Monocytes % 7.9 Eosinophils % 0.6 Basophils % 0.4 - Medications Given in the ED: ED Medications Discontinued Medications Generic Name Dose Route Start Last Admin Trade Name Cameron PRN Reason Stop Dose Admin Morphine Sulfate 2 mg 06/06/18 16:35 06/06/18 17:26 Morphine Injection - IVPUSH 06/06/18 16:36 2 mg ONCE ONE Administration Medical Decision Making - Medical Decision Making 06/06/18 17:13 CC: luq and epigastric pain x months, states has endoscopy w/ sandip on 06/23 Exam: mild epigastric and luq tenderness Plan: labs urine, and mso4, pt had u/s done earlier this month which was -. 06/06/18 18:14 Laboratory Tests 06/06/18 06/06/18 06/06/18 15:05 17:04 17:10 WBC 4.4 Hgb 12.1 Hct 35.1 MCH 34.8 H MPV 7.3 L Neutrophils % 37.7 L Lymphocytes % 53.4 H D Monocytes % 7.9 Eosinophils % 0.6 Basophils % 0.4 Nucleated RBC % 0 Sodium 135 L Potassium 3.8 Chloride 102 Carbon Dioxide 26 Anion Gap 7 L Creatinine 0.6 Random Glucose 91 Calcium 8.6 Magnesium 2.3 AST 49 H ALT 42 Alkaline Phosphatase 135 H Total Protein 6.1 L Albumin 3.1 L Lipase 41 L Urine Color Kimi Urine Appearance Clear Urine pH 6.0 Ur Specific [place] 1.018 Urine Protein Negative Urine Glucose (UA) Negative Urine Ketones Negative Urine Blood Negative Urine Nitrite Negative Urine Bilirubin Negative Urine Urobilinogen 4.0 e.u/dl H Ur Leukocyte Esterase Negative pt states feeling better. Will dc home to f/u w/ GI *DC/Admit/Observation/Transfer Diagnosis at time of Disposition: Abdominal pain - Discharge Dispostion Disposition: HOME Condition at time of disposition: Improved - Referrals Referrals: Lily Henry MD [Primary Care Provider] - Rubin Riley MD [Staff Physician] - - Patient Instructions Printed Discharge Instructions: DI for Abdominal Pain-Adult Additional Instructions: Please follow up with GI as scheduled. Follow a bland diet and return to the E if s/s worsen. - Post Discharge Activity
== END 2018-06-06 18:20 | disposition home or self-care (01) ==
LOC: JER 13:39
DX: R10.9 Unspecified abdominal pain (principal); R42 Dizziness and giddiness
CPT/HCPCS: 36415; 80053; 81003; 83690; 83735; 85025; 87086; 99283-25

== ENCOUNTER 2019-07-14 03:39 | Emergency (ER) | payer OTHER ==
[2019-07-14] MEDS ORDERED: LACTATED RINGERS SOLUTION 1000 ML INFUS.BAG IV ONE (04:07)
[2019-07-14] MEDS ORDERED: ACETAMINOPHEN 1000 MG/100 ML VIAL (NON FORMULARY) IVPB ONE (04:07)
[2019-07-14] MEDS ORDERED: LIDOCAINE 5% TOPICAL PATCH TP ONE (04:07)
[2019-07-14] MEDS ORDERED: LIDOCAINE 5% TOPICAL PATCH ONE (04:37)
[2019-07-14] MEDS ORDERED: ACETAMINOPHEN INJECTION 100 ML IVPB ONE (04:37)
[2019-07-14 04:44] VITALS: TEMP 98.3
[2019-07-14 05:18] LABS: BASO % 0.3 % (0-2.0); HEMATOCRIT 32.4 % (32.4-45.2); HEMOGLOBIN 10.9 GM/dL (10.7-15.3); LYMPH % 33.7 % (8-40); MCH 32.3 pg (25.7-33.7); MCHC 33.6 g/dl (32.0-36.0); MEAN CELL VOLUME 96.1 fl (80-96); MONO % 3.1 % (3.8-10.2); NEUT % 62.9 % (42.8-82.8); PLATELET COUNT 276 K/MM3 (134-434); RBC 3.37 M/mm3 (3.60-5.2); WHITE BLOOD COUNT 2.8 K/mm3 (4.0-10.0)
[2019-07-14 05:43] LABS: ALBUMIN 3.5 g/dl (3.4-5.0); ALK PHOS 123 U/L (45-117); ANION GAP 8 MMOL/L (8-16); BILIRUBIN,TOTAL 0.9 mg/dL (0.2-1); BLOOD UREA NITROGEN 13.1 mg/dL (7-18); CALCIUM 8.4 mg/dL (8.5-10.1); CHLORIDE 106 mmol/L (98-107); CO2 25 mmol/L (21-32); CREATININE 0.7 mg/dL (0.55-1.3); GLUCOSE,RANDOM 174 mg/dL (74-106); LIPASE 16 U/L (73-393); POTASSIUM 3.4 mmol/L (3.5-5.1); SGOT/AST 22 U/L (15-37); SGPT/ALT 27 U/L (13-61); SODIUM 138 mmol/L (136-145); TOT PROT 7.4 g/dl (6.4-8.2)
[2019-07-14 06:03] VITALS: BMI 22.3
[2019-07-14] MEDS ORDERED: METOCLOPRAMIDE HCL INJECTION 10 MG/2 ML VIAL IVPB ONE (06:17)
[2019-07-14] MEDS ORDERED: FAMOTIDINE 20 MG/50 ML IVPB 20 MG/50 ML MG IVPB ONE ×2 (06:18→06:23)
[2019-07-14] MEDS ORDERED: METOCLOPRAMIDE HCL INJECTION 10 MG/2 ML VIAL ONE (06:23)
[2019-07-14 06:28] LABS: EPI CELLS 12 /uL (0-25.1); HYALINE CASTS 1 /uL (0-3.1); PH,URINE 5.5 (5.0-8.0); URINE APPEARANCE CLEAR; URINE BACTERIA 117 /uL (0-1359); URINE BILIRUBIN NEGATIVE (NEGATIVE); URINE COLOR YELLOW; URINE GLUCOSE (UA) NEGATIVE (NEGATIVE); URINE KETONE 2+ (NEGATIVE); URINE LEUK ESTERASE 1+ (NEGATIVE); URINE NITRITE NEGATIVE (NEGATIVE); URINE PROTEIN NEGATIVE (NEGATIVE); URINE RBC 13 /uL (0-23.9); URINE WBC 114 /uL (0-25.8)
[2019-07-14] MEDS ORDERED: MAGNESIUM SULF 50% (8.12 MEQ/2 ML-1 GM VIAL) IVPB ONE (06:55)
[2019-07-14] MEDS ORDERED: MAGNESIUM 1GM/D5W - 1 GM/100 ML IVPB IVPB ONE (07:18)
[2019-07-14] MEDS ORDERED: MAGNESIUM SULF 50% (8.12 MEQ/2 ML-1 GM VIAL) ONE ×2 (07:18→07:28)
[2019-07-14] MEDS ORDERED: LIDOCAINE VISCOUS 2% ORAL/TOP 20 ML UNIT-DOSE CUP MM ONE (08:01)
[2019-07-14] MEDS ORDERED: MAG HYDROX/AL HYDROX/SIMETH 30 ML UNIT-DOSE CUP PO ONE (08:01)
[2019-07-14] MEDS ORDERED: MAG HYDROX/AL HYDROX/SIMETH 30 ML UNIT-DOSE CUP ONE (08:46)
[2019-07-14] MEDS ORDERED: LIDOCAINE VISCOUS 2% ORAL/TOP 20 ML UNIT-DOSE CUP ONE (08:46)
[2019-07-14 09:48] VITALS: BP 167/80; PULSE 75
[2019-07-14] MEDS ORDERED: LIDOCAINE PATCH REMOVAL MC SCH (22:00)
== END 2019-07-14 10:00 | disposition home or self-care (01) ==
LOC: JER 03:39
PROC: 3E033GC Introduction of Other Therapeutic Substance into Peripheral Vein, Percutaneous Approach (ICD-10-PCS; principal; 2019-07-14)
DX: R10.12 Left upper quadrant pain (principal); G89.29 Other chronic pain
CPT/HCPCS: 36415; 71045-TC-FY; 74176-TC; 80053; 81003; 83605; 83690; 84484; 84703; 85025; 87077; 87086; 93005; 93010; 96365; 96375; 99285-25; J0131

== ENCOUNTER 2021-03-20 11:53 | Emergency (ER) | payer OTHER ==
[2021-03-20 12:15] VITALS: BP 117/89; PULSE 89; TEMP 98.9; BMI 25.4
[2021-03-21 12:07] LABS: SARS-CoV-2 NAA Not Detected (Not Detected)
== END 2021-03-20 15:33 | disposition home or self-care (01) ==
LOC: JER 11:53
DX: R09.81 Nasal congestion (principal); M54.6 Pain in thoracic spine
CPT/HCPCS: 71046-TC-FY; 87804; 99283-25; C9803; U0003; U0005

== ENCOUNTER 2021-10-18 06:19 | Day surgery (SDC) | payer OTHER ==
[2021-10-17 15:05] VITALS: BMI 24.0
[2021-10-18] MEDS ORDERED: LIDOCAINE HCL 2% (20ML MULTI-DOSE VIAL) ONE (07:08)
[2021-10-18] MEDS ORDERED: PROPOFOL 20 ML ONE (07:27)
[2021-10-18] MEDS ORDERED: MIDAZOLAM HCL 2 MG/2 ML SINGLE DOSE VIAL ONE ×2 (07:27)
[2021-10-18] MEDS ORDERED: SUCCINYLCHOLINE CHLORIDE 200 MG/10 ML SYRINGE ONE (07:27)
[2021-10-18] MEDS ORDERED: DEXAMETHASONE SOD PHOSPHATE 4 MG/1 ML VIAL ONE (08:23)
[2021-10-18] MEDS ORDERED: ONDANSETRON 4 MG/2 ML VIAL ONE (08:23)
[2021-10-18 09:09] VITALS: TEMP 97.9
[2021-10-18 09:31] VITALS: BP 136/70; PULSE 68; RESP 18
== END 2021-10-18 09:58 | disposition home or self-care (01) ==
LOC: FASU 06:19
PROVIDERS: ATTEND Orthopaedic Surgery Hand Surgery
PROC: 0LN70ZZ Release Right Hand Tendon, Open Approach (ICD-10-PCS; 2021-10-18)
PROC: 01N50ZZ Release Median Nerve, Open Approach (ICD-10-PCS; principal; 2021-10-18 08:30)
PROC: 0LN70ZZ Release Right Hand Tendon, Open Approach (ICD-10-PCS; 2021-10-18 08:30)
DX: G56.01 Carpal tunnel syndrome, right upper limb (principal); M65.321 Trigger finger, right index finger; M65.331 Trigger finger, right middle finger

== ENCOUNTER 2022-08-05 11:29 | Emergency (ER) | payer OTHER ==
[2022-08-05 11:40] VITALS: BMI 22.7
[2022-08-05] MEDS ORDERED: LIDOCAINE 5% TOPICAL PATCH TP ONE (12:24)
[2022-08-05] MEDS ORDERED: METHOCARBAMOL 500 MG TABLET PO ONE (12:24)
[2022-08-05] MEDS ORDERED: ACETAMINOPHEN 325 MG TABLET (FP) PO ONE (12:24)
[2022-08-05] MEDS ORDERED: KETOROLAC TROMETHAMINE 30 MG/1 ML VIAL IM ONE (12:24)
[2022-08-05] MEDS ORDERED: KETOROLAC TROMETHAMINE 30 MG/1 ML VIAL ONE (12:32)
[2022-08-05] MEDS ORDERED: METHOCARBAMOL 500 MG TABLET ONE (12:32)
[2022-08-05] MEDS ORDERED: LIDOCAINE 5% TOPICAL PATCH ONE (12:32)
[2022-08-05] MEDS ORDERED: ACETAMINOPHEN 325 MG TABLET (FP) ONE (12:32)
[2022-08-05 14:05] VITALS: BP 145/82; PULSE 71; RESP 16; TEMP 97.7
[2022-08-05] MEDS ORDERED: LIDOCAINE PATCH REMOVAL MC ONE (22:00)
== END 2022-08-05 14:05 | disposition home or self-care (01) ==
LOC: JER 11:29
PROC: 3E0233Z Introduction of Anti-inflammatory into Muscle, Percutaneous Approach (ICD-10-PCS; principal; 2022-08-05)
DX: M54.2 Cervicalgia (principal)
CPT/HCPCS: 96372; 99284-25

== ENCOUNTER 2024-02-09 03:12 | Inpatient (IN) | payer OTHER ==
[2024-02-09 03:31] VITALS: BMI 31.7
[2024-02-09 04:16] LABS: HEMATOCRIT 30.2 % (32.4-45.2); HEMOGLOBIN 10.4 GM/dL (10.7-15.3); MCH 33.1 pg (25.7-33.7); MCHC 34.5 g/dl (32.0-36.0); MEAN CELL VOLUME 95.9 fl (80-96); MEAN PLT VOLUME 6.4 fl (7.5-11.1); PLATELET COUNT 220 10^3/uL (134-434); RBC 3.15 M/mm3 (3.60-5.2); RDW 13.3 % (11.6-15.6); WHITE BLOOD COUNT 6.5 K/mm3 (4.0-10.0)
[2024-02-09] MEDS ORDERED: ACETAMINOPHEN INJECTION 100 ML ONE ×2 (04:27→15:47)
[2024-02-09 04:35] LABS: POTASSIUM 3.6 mmol/L (3.5-5.1)
[2024-02-09 04:36] LABS: CALCIUM 8.5 mg/dL (8.5-10.1)
[2024-02-09 04:38] LABS: ALBUMIN 3.6 g/dl (3.4-5.0); BLOOD UREA NITROGEN 17.6 mg/dL (7-18)
[2024-02-09] MEDS: ACETAMINOPHEN 1000 MG/100 ML BAG IVPB ONE ×2 (04:38→15:49)
[2024-02-09 04:40] LABS: CREATININE 1.2 mg/dL (0.55-1.3)
[2024-02-09 04:43] LABS: TOT PROT 6.7 g/dl (6.4-8.2)
[2024-02-09 04:52] LABS: ANISOCYTOSIS 0; MACROCYTOSIS 0
[2024-02-09] MEDS ORDERED: MORPHINE SULFATE 2 MG/ML SYRINGE ONE ×2 (05:45→08:16)
[2024-02-09] MEDS: morphine CARPU-JECT 2 MG/1 ML DISP.SYRIN IVPUSH ONE ×2 (05:47→08:22)
[2024-02-09 12:14] VITALS: RESP 18
[2024-02-09 13:03] LABS: EPI CELLS 5 /uL (0-25.1); HYALINE CASTS 0 /uL (0-3.1); PH,URINE 5.5 (5.0-8.0); URINE APPEARANCE CLEAR; URINE BACTERIA 6512 /uL (0-1359); URINE BILIRUBIN NEGATIVE (NEGATIVE); URINE COLOR YELLOW; URINE GLUCOSE (UA) NEGATIVE (NEGATIVE); URINE KETONE TRACE (NEGATIVE); URINE LEUK ESTERASE TRACE (NEGATIVE); URINE NITRITE NEGATIVE (NEGATIVE); URINE PROTEIN TRACE (NEGATIVE); URINE RBC 7 /uL (0-23.9); URINE WBC 19 /uL (0-25.8)
[2024-02-09] MEDS: LORazepam 2 MG TABLET PO ONE (13:06)
[2024-02-09] MEDS ORDERED: KETOROLAC TROMETHAMINE 15 MG/ML VIAL ONE (13:22)
[2024-02-09] MEDS ORDERED: ONDANSETRON 4 MG/2 ML VIAL ONE (13:23)
[2024-02-09] MEDS: ONDANSETRON 4 MG/2 ML VIAL IVPUSH ONE (13:34)
[2024-02-09] MEDS: KETOROLAC TROMETHAMINE 15 MG/ML VIAL IVPUSH ONE (13:34)
[2024-02-09] MEDS ORDERED: KETOROLAC TROMETHAMINE 15 MG/ML VIAL IVPUSH PRN (14:59)
[2024-02-09] MEDS ORDERED: MORPHINE SULFATE 2 MG/ML SYRINGE IVPUSH PRN (14:59)
[2024-02-09] MEDS ORDERED: ACETAMINOPHEN 500 MG TABLET (FP) PO PRN (15:00)
[2024-02-09] MEDS: LACTATED RINGERS SOLUTION 1,000 ML/1,000 ML INFUS.BAG IV SCH (15:34)
[2024-02-09] MEDS: CEFTRIAXONE 1 GM in DEXTROSE 5%-WATER - 50 ML IVPB SCH (15:38)
[2024-02-09] MEDS ORDERED: CEFTRIAXONE 1,000 MG in DEXTROSE 5%-WATER - 50 ML IVPB ONE (15:45)
[2024-02-09 15:50] VITALS: TEMP 101.4
[2024-02-09] MEDS: LACTATED RINGERS SOLUTION 1,000 ML/1,000 ML INFUS.BAG IV STA (16:00)
[2024-02-09] MEDS ORDERED: AZTREONAM 1 GM in DEXTROSE 5%-WATER - 50 ML IVPB SCH ×2 (16:00→16:15)
[2024-02-09] MEDS ORDERED: CEFTRIAXONE 1 GM/50 ML BAG ONE (16:19)
[2024-02-09 17:25] VITALS: BP 114/64
[2024-02-09 17:28] VITALS: PULSE 88
[2024-02-09] MEDS ORDERED: rOPINIRole HCL 1 MG TABLET (FP) PO SCH (22:00)
[2024-02-10] MEDS ORDERED: DULoxetine HCL 60 MG CAPSULE.DR PO SCH (10:00)
== END 2024-02-09 18:02 | disposition short-term general hospital (02) | DRG 872 ==
LOC: JER 03:12 → JERBED 15:16 → OBSVTOIN 15:43
PROVIDERS: ADMIT Internal Medicine; ATTEND Internal Medicine
DX: A41.9 Sepsis, unspecified organism (principal); N13.2 Hydronephrosis with renal and ureteral calculous obstruction; I10 Essential (primary) hypertension; R65.20 Severe sepsis without septic shock
CPT/HCPCS: 36415; 74176-TC; 80053; 81003; 83605; 83690; 84703; 85025; 87086; 87186; 93005; 93010; 99285-25; G0378; J0131

== ENCOUNTER 2024-03-22 10:14 | Emergency (ER) | payer OTHER ==
[2024-03-22 10:37] VITALS: BMI 26.5
[2024-03-22] MEDS ORDERED: ONDANSETRON 4 MG/2 ML VIAL ONE (11:55)
[2024-03-22] MEDS ORDERED: ACETAMINOPHEN INJECTION 100 ML ONE (11:55)
[2024-03-22] MEDS: SODIUM CHLORIDE 0.9% 500 ML INFUS.BAG IV ONE (12:40)
[2024-03-22] MEDS: ONDANSETRON 4 MG/2 ML VIAL IVPUSH ONE (12:40)
[2024-03-22] MEDS: ACETAMINOPHEN 1000 MG/100 ML BAG IVPB ONE (12:40)
[2024-03-22 12:44] LABS: BASO % 0.3 % (0-2.0); EOS % 0.2 % (0-4.5); HEMATOCRIT 34.6 % (32.4-45.2); HEMOGLOBIN 11.7 GM/dL (10.7-15.3); LYMPH % 18.6 % (8-40); MCH 32.2 pg (25.7-33.7); MCHC 33.8 g/dl (32.0-36.0); MEAN CELL VOLUME 95.3 fl (80-96); MEAN PLT VOLUME 7.2 fl (7.5-11.1); MONO % 2.9 % (3.8-10.2); PLATELET COUNT 350 10^3/uL (134-434); RBC 3.64 M/mm3 (3.60-5.2); RDW 13.7 % (11.6-15.6); WHITE BLOOD COUNT 6.2 K/mm3 (4.0-10.0)
[2024-03-22 13:02] LABS: POTASSIUM 4.8 mmol/L (3.5-5.1)
[2024-03-22 13:04] LABS: CALCIUM 9.1 mg/dL (8.5-10.1)
[2024-03-22 13:05] LABS: ALBUMIN 3.6 g/dl (3.4-5.0); BLOOD UREA NITROGEN 9.7 mg/dL (7-18)
[2024-03-22 13:08] LABS: CREATININE 0.8 mg/dL (0.55-1.3)
[2024-03-22 13:09] LABS: BILIRUBIN,TOTAL 0.6 mg/dL (0.2-1); TOT PROT 8.4 g/dl (6.4-8.2)
[2024-03-22 13:16] LABS: VENOUS BASE EXCESS -2.9 mmol/L (-2-2); VENOUS O2 SATURATION 44.6 % (70-80); VENOUS PCO2 45.9 mmHg (38-52); VENOUS PH 7.323 (7.310-7.410)
[2024-03-22] MEDS ORDERED: morphine SULFATE 4 MG/ML VIAL ONE (13:43)
[2024-03-22] MEDS: morphine CARPU-JECT 4 MG/1 ML DISP.SYRIN IVPUSH ONE (14:04)
[2024-03-22 14:10] LABS: EPI CELLS 21 /uL (0-25.1); HYALINE CASTS 1 /uL (0-3.1); URINE APPEARANCE CLEAR; URINE BACTERIA 60 /uL (0-1359); URINE BILIRUBIN NEGATIVE (NEGATIVE); URINE COLOR YELLOW; URINE GLUCOSE (UA) NEGATIVE (NEGATIVE); URINE KETONE 1+ (NEGATIVE); URINE LEUK ESTERASE 1+ (NEGATIVE); URINE NITRITE NEGATIVE (NEGATIVE); URINE PROTEIN 1+ (NEGATIVE); URINE WBC 70 /uL (0-25.8)
[2024-03-22 14:28] LABS: HIV INTERPRETATION NEGATIVE (NEGATIVE)
[2024-03-22 15:04] LABS: URINE RBC 131 /uL (0-23.9)
[2024-03-22 17:04] VITALS: BP 150/83; PULSE 51; RESP 16; TEMP 98
== END 2024-03-22 17:17 | disposition home or self-care (01) ==
LOC: JER 10:14
PROC: 3E033NZ Introduction of Analgesics, Hypnotics, Sedatives into Peripheral Vein, Percutaneous Approach (ICD-10-PCS; principal; 2024-03-22)
PROC: 3E033NZ Introduction of Analgesics, Hypnotics, Sedatives into Peripheral Vein, Percutaneous Approach (ICD-10-PCS; 2024-03-22)
PROC: 3E033GC Introduction of Other Therapeutic Substance into Peripheral Vein, Percutaneous Approach (ICD-10-PCS; 2024-03-22)
DX: R10.9 Unspecified abdominal pain (principal); R11.2 Nausea with vomiting, unspecified; R30.0 Dysuria
CPT/HCPCS: 36415; 74176-TC; 80053; 81003; 82803; 83605; 83690; 85025; 86803; 87040; 87086; 87389; 93005; 93010; 96374; 96375; 99285-25; J0131